=== PATIENT | female | born 1985 | race African-American/Black ===

== ENCOUNTER 2020-11-06 15:54 | Outpatient (CLI) | payer OTHER, SELFPAY ==
[2020-11-06 16:52] LABS: Beta HCG Quantitative < 2.39 mIU/ML
[2020-11-06 17:17] LABS: HIV 1/2 Ab P24 Ag Result Negative (Negative)
[2020-11-06 17:33] LABS: Hepatitis B Surface Antigen Negative (Negative)
[2020-11-06 17:39] LABS: HAV RESULT Negative (Negative); Hepatitis B Core IgM Result Negative (Negative)
[2020-11-06 17:51] LABS: Hepatitis C Virus Antibody Negative (Negative)
[2020-11-07 06:59] LABS: Rapid Plasma Reagin Non-Reactive (NonReactive)
== END 2020-11-06 15:55 | disposition home or self-care (01) ==
LOC: ANHLAB 15:58
PROVIDERS: PCP Registered Nurse; Visit Provider Obstetrics & Gynecology
DX: Z11.3 Encounter for screening for infections with a predominantly sexual mode of transmission (principal); N92.6 Irregular menstruation, unspecified
CPT/HCPCS: 36415; 80074; 84702; 86592; 86695; 86696; 86703; 87491; 87591; G0432

== ENCOUNTER → 2022-02-09 03:14 | Outpatient (CLI) | payer BC, SELFPAY ==
[2022-02-09 10:57] LABS: SARS-CoV-2 RNA PCR Negative
== END ==
PROVIDERS: PCP Registered Nurse; Visit Provider Registered Nurse
DX: Z71.84 Encounter for health counseling related to travel (principal); Z20.822 Contact with and (suspected) exposure to COVID-19
CPT/HCPCS: C9803; U0003; U0005

== ENCOUNTER 2024-07-18 10:44 | Outpatient (CLI) | payer BC, SELFPAY ==
--- NOTE | ~2024-07-18 | US_ITS ---
EXAMINATION: US thyroid DATE: 07/18/2024 11:01 INDICATION: Thyroid nodule. TECHNIQUE: Multiple ultrasound images of the thyroid were obtained. COMPARISON: Ultrasound 09/27/19 FINDINGS: The right thyroid lobe measures 4.5 x 1.0 x 1.1 cm. The left thyroid lobe measures 8.4 x 4.6 x 5.1 c m. In the right thyroid lobe, there is a 7 mm solid, hypoechoic, wider than tall nodule with smooth margin without echogenic foci (TI-RADS TR4). In the left thyroid lobe, there is an 8.4 cm predominant ly solid, hypoechoic, wider than tall nodule with smooth margin without echogenic foci (TR4), increas ed from 5.7 cm on 09/27/19. IMPRESSION: 1. Thyroid nodules. Ultrasound-guided fine-needle aspiration of the 8.4 cm left thyroid nodule is rec ommended. Reviewed, dictated and finalized at location A. IMPRESSION: 1. Thyroid nodules. Ultrasound-guided fine-needle aspiration of the 8.4 cm left thyroid nodule is recommended.
== END 2024-07-18 10:45 ==
LOC: MICIMG 10:45
PROVIDERS: PCP Registered Nurse; Visit Provider Registered Nurse
DX: E04.2 Nontoxic multinodular goiter (principal)
CPT/HCPCS: 76536

== ENCOUNTER 2025-06-16 11:54 | Emergency (ER) | payer OTHER, SELFPAY ==
--- NOTE | ~2025-06-16 | XR_ITS ---
HISTORY: flat foot. MTP 1st COMPARISON: None TECHNIQUE: 3 views of the right foot were performed FINDINGS: No acute fracture or dislocation is appreciated. No significant degenerative disease is noted. The base of the fifth metatarsal is intact. Moderate calcaneal spur is noted. Forefoot soft tissue swelling is present. IMPRESSION: Forefoot soft tissue swelling without acute fracture. Reviewed, dictated and finalized at location A.
--- NOTE | 2025-06-16 12:00 | ED.EXTPRO ---
HPI - Extremity Problem General Chief complaint: Extremity Problem,Nontraumatic Stated complaint: Legs/Feet Pain Time Seen by Provider: 06/16/25 12:01 Source: patient, RN notes reviewed and old records reviewed Mode of arrival: ambulatory Limitations: no limitations History of Present Illness HPI Narrative: 39-year-old female presents to the [facility] with complaints of at least 1 week history of bilateral lower leg pain, right foot pain mostly in the great toe joint. No redness, swelling noted. No injury. Patient reports pain is worse in morning, gets better throughout the day. 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 Onset (ago): week(s) (1) Related Data Home Medications ?Medication ?Instructions ?Recorded ?Confirmed ?Last Taken ?Type amitriptyline 25 mg tablet 25 mg PO QHS 02/17/22 06/06/25 Unknown History Allergies Allergy/AdvReac Type Severity Reaction Status Date / Time No Known Allergies Allergy Mild Verified 06/16/25 12:12 Review of Systems Review of Systems: All systems reviewed & are unremarkable except as noted in HPI and below Constitutional: Constitutional: Reports no additional constitutional complaints Musculoskeletal: Musculoskeletal: Reports as per HPI and Denies joint swelling Integumentary/Breasts: Skin/Breast: Reports system reviewed and no additional complaints, except as docu PMFSH Past Medical History Medical History Screening mammogram, encounter for Migraines Vaginal discharge Encounter for screening examination for sexually transmitted disease Abnormal Pap smear of cervix 06/2009 Anxiety Family History Family History Other Diabetes mellitus aunt Grandparent Diabetes mellitus grandmother Social History Social History Smoking status: Never smoker Second hand tobacco smoke exposure: No Alcohol intake: never Substance use: never Substance use type: does not use Do You Feel Safe in your Home?: Yes Lack of Transportation: No Lack of Food: Never True Current Housing: I Have Housing Concerned About Future Housing: No Difficulty Paying Gas/Electric Bills: No Difficulty Paying for Meds: No Currently Unemployed: No Education: Trade/Vocational Certificate Difficulty w/ Childcare or Family Care: No Living arrangements: other Additional living arrangements comments: fiance Occupation/Education: occupation 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 There is no relevant family history pertinent to the patient complaint. Exam Const: General: cooperative, healthy appearing, comfortable, no acute distress, well developed, alert and well nourished Nutritional Appearance: well nourished Orientation/consciousness: patient oriented x3 Limitations: no limitations HENMT: Head: normal to inspection Eyes: General: appearance normal, both eyes and all related structures Alignment and Position: alignment normal Neck: Neck: normal visual inspection, full ROM, no lymphadenopathy and no meningeal signs Chest: Chest palpation & inspection: normal inspection of the chest Resp: Effort & Inspection: normal respiratory effort and able to speak in complete sentences Cardio: Rate: regular rate Skin: General skin exam: normal color and no rashes or lesions noted Neuro: General: patient oriented x3, gait normal, moves all extremities and no meningeal signs Cognition (Neuro): normal cognition Speech: normal speech Gait exam (Neuro): Normal gait present Extrem: General: normal to inspection, full ROM, capillary refill normal and normal gait Right lower extremity: foot Details: tenderness Location: of the great toe Location: at the MTP joint, toes with normal ROM, no edema and vascular exam Details: dorsalis pedis pulse present and normal capillary refill; no abrasion and no ecchymosis Psych: Appearance: grossly normal and well kempt Mental Status: mental status grossly normal Speech and movement: Normal speech and movement present and Clear speech present Affect: normal affect Attitude: cooperative Course Course Level of Care: Express Care Visit Vital Signs Vital signs: Vital Signs Temperature 98.3 F 06/16/25 12:04 Pulse Rate 79 06/16/25 12:04 Respiratory Rate 06/16/25 12:04 Blood Pressure 120/72 06/16/25 12:04 Pulse Oximetry 100 06/16/25 12:04 Oxygen Delivery Room Air 06/16/25 12:04 Temperature 98.3 F 06/16/25 12:04 Pulse Rate 79 06/16/25 12:04 Respiratory Rate 20 06/16/25 12:04 Blood Pressure 120/72 06/16/25 12:04 Pulse Oximetry 100 06/16/25 12:04 Oxygen Delivery Room Air 06/16/25 12:04 Reviewed MDM - Extremity (Nontraumatic) MDM Narrative Medical decision making narrative: Patient sitting in exam room. Patient is nontoxic, vitals stable. Patient presents with 1 week history lower leg pain, right foot, great toe pain. No erythema, ecchymosis. No injury. Patient history of flat feet No edema. X-ray of a foot is negative for acute findings Patient appropriate for outpatient treatment with close follow-up Discharge instructions reviewed with patient, as well as provided in writing per nursing staff. The instructions also include specific and strict return/GO TO THE ER as well as f/u information. All questions have been answered, and the patient deny any further questions with discharge and discharge plan. Some parts of this dictation were generated by voice recognition software and may contain typographical and/or grammatical inaccuracies. Differential Diagnosis Differential diagnosis: Likely gout, cellulitis, superficial thrombophlebitis, lower extremity edema, deep vein thrombosis of lower extremity and other (Musculoskeletal pain, dehydration, electrolyte disturbance, heat issues) Imaging Data Radiologist's impression: HISTORY: flat foot. MTP 1st COMPARISON: None TECHNIQUE: 3 views of the right foot were performed FINDINGS: No acute fracture or dislocation is appreciated. No significant degenerative disease is noted. The base of the fifth metatarsal is intact. Moderate calcaneal spur is noted. Forefoot soft tissue swelling is present. IMPRESSION: Forefoot soft tissue swelling without acute fracture. Critical Care Time Critical Care Time Critical Care Time: No Discharge Plan Discharge Clinical Impression: Bilateral leg pain, Flat feet, bilateral, Acute pain of right foot Patient Disposition: Home Condition: Stable Instructions: Arthralgia (ED), Leg Pain (ED) Additional Instructions: Your Xray did not show a fracture. Wear good supportive shoes at all times. Ice should be applied to help reduce swelling. It can be used for 20 to 30 minutes, every 2-3 hours while awake. Do not apply ice directly to your skin. You can alternate ibuprofen 600mg and Tylenol 650mg every 4 hours as needed for pain Muscle cramping can occur during hot weather. Is important not to just drink water but also items with electrolytes such as Pedialyte or Gatorade. You should be drinking a minimum of 80oz per day. Please schedule a follow-up visit with your personal physician for further evaluation and treatment within 2 weeks especially if symptoms persist. For new or worsening symptoms go directly to the emergency room Patient Language: French Prescriptions: No Action amitriptyline 25 mg tablet 25 mg PO QHS drospirenone-ethinyl estradiol [DEMETRI (28)] 3-0.02 mg tablet 1 tablet PO DAILY Qty: 84 3RF Follow-up/Referrals: Eugene Dolan Jr., DPM [Physician] - 1 Week (right foot pain. FLat foot) Lesly,SYEDA Anderson [Primary Care Provider] - 1 Week (express care follow up ) Time of Disposition: 12:44
[2025-06-16 12:04] VITALS: BP 120/72; PULSE 79; RESP 20; TEMP 36.8; O2SAT 100
== END 2025-06-16 12:50 | disposition home or self-care (01) ==
PROVIDERS: Emergency Provider Nurse Practitioner; PCP Registered Nurse
DX: M79.661 Pain in right lower leg (principal); M79.662 Pain in left lower leg; M21.42 Flat foot [pes planus] (acquired), left foot; M21.41 Flat foot [pes planus] (acquired), right foot; M79.671 Pain in right foot
CPT/HCPCS: 73630; 99213; G0463

== ENCOUNTER 2025-06-21 14:35 | Observation (INO) | payer OTHER, SELFPAY ==
[2025-06-21] VITALS (23 sets, daily range): BP systolic 121–145; BP diastolic 57–86; PULSE 72–112; RESP 14–31; TEMP 36.7–37.2; O2SAT 97–100; BMI 32.1
--- NOTE | ~2025-06-21 | US_ITS ---
EXAMINATION: US venous doppler [facility] DATE: 06/21/2025 16:54 INDICATION: Pulmonary embolism. Assess for deep venous thrombosis. TECHNIQUE: Grayscale ultrasound images without and with compression and Doppler ultrasound images of the bilateral lower extremity veins were obtained. COMPARISON: None. FINDINGS: The visualized portions of right common femoral vein, profunda (deep) femoral vein, femoral vein, pop liteal vein, posterior tibial veins, peroneal veins, gastrocnemius vein and greater saphenous vein ou tflow are patent. Noncompressible deep venous thrombosis at the left popliteal vein, gastrocnemius vein, peroneal veins and posterior tibial veins. The visualized portions of left common femoral vein, profunda femoral ve in, femoral vein, gastrocnemius vein and greater saphenous vein outflow are patent. IMPRESSION: 1. [id number] deep venous thrombosis at the left popliteal, gastrocnemius, peroneal vein and pos terior tibial veins. 2. No deep venous thrombosis in the right lower limb. Reviewed, dictated and finalized at location A. IMPRESSION: 1. [id number]-[id number] deep venous thrombosis at the left popliteal, gastrocnemius, peroneal vein and posterior tibial veins. 2. No deep venous thrombosis in the right lower limb.
--- NOTE | ~2025-06-21 | CT_ITS ---
EXAMINATION: CTA chest PE protocol DATE: 06/21/2025 16:27 INDICATION: Shortness of breath TECHNIQUE: Computed tomography (CT) pulmonary angiogram of the chest was performed with 100 mL Omnipa que-350 intravenous contrast. Additional 3D reconstructions utilizing coronal maximum intensity proje ction (MIP) were performed. Automated exposure control and iterative reconstruction technique were em ployed. The dose-length product was 266.22 mGy-cm. COMPARISON: None FINDINGS: There are multiple pulmonary arterial filling defects consistent with pulmonary emboli. On the right includes in the right upper lobar and each of the segmental pulmonary arteries, extending between the right middle and lower lobar bronchi extending into posterior medial lateral segmental pulmonary art eries in the right middle lobe and the anterior and lateral basilar segmental pulmonary arteries of t he right lower lobe. On the left or pulmonary emboli in the posterior, lateral and anteromedial segme ntal pulmonary arteries of the left lower lobe as well as the superior and inferior lingular pulmonar y arteries. Wedge-shaped region of groundglass opacity with peripheral consolidation at the anterior basilar segm ent of the right lower lobe consistent with pulmonary infarct. Minimal dependent atelectasis in bilat eral lower lobes. No pneumonia, pulmonary edema or pleural effusion. Heart size is normal. No evident leftward bowing of the ventricular septum to suggest right heart strain. No pericardial effusion. Th oracic aorta is normal in caliber with no dissection. No pathologically enlarged thoracic lymphadenop athy. Multiple low-attenuation hepatic cysts the largest the right hepatic lobe measuring 1.9 cm. Vis ualized upper abdomen is otherwise unremarkable. Mild thoracic dextrocurvature with mild spondylosis. IMPRESSION: 1. Extensive pulmonary emboli which are findings lobe of both lungs including in the majority of the segmental pulmonary arteries. No evident associated right heart strain. 2. Which is a region of groundglass opacity with peripheral consolidation at the anterobasilar segmen t of the right lower lobe most consistent with pulmonary infarct. Dr. Spivey discussed this and pre sence of pulmonary emboli with Dr. West at 4:52 PM. Reviewed, dictated and finalized at location A. IMPRESSION: 1. Extensive pulmonary emboli which are findings lobe of both lungs including i n the majority of the segmental pulmonary arteries. No evident associated right heart strain. 2. Which is a region of groundglass opacity with peripheral consolidation at th e anterobasilar segment of the right lower lobe most consistent with pulmonary infarct. Dr. Spivey discussed this and presence of pulmonary emboli with Dr. West at 4:52 PM.
--- OUTSIDE RECORDS SUMMARY | 2025-06-21 14:38 | XMS_ITS | Encounter Summary ---
Author Organization [facility] Address [facility] [place] [address] Care Team Providers Care Senior Etl Developer Name Role Phone Monica Grace Primary Care Provider Encounter Details Date Type Department Care Team (Late st Contact Info) Description 10/29/2022 [place] Message Enc [facility] Family & Internal Medicine [facility] [address] [place] [address] Monica Grace APNP [address], [place] [phone] Bad cough Social History Tobacco Use Types Packs/Day Years Used Date Smoking Tobacco: Never Smokeless Tobacco: Never Alcohol Use Standard Drinks/Week Comments Yes 0 (1 standard drink = 0.6 oz pur e alcohol) Occ PHQ-2 Answer Date Recorded PHQ-2 Score - If the patient scores above 3, please move on to questions 3-9 1 12/19/2021 Comments No Sex and Gender Information Value Date Recorded Sex Assigned at Female 02/05/2021 4:18 PM CDT Legal Sex Female 9:39 PM CDT Gender Identity Female 02/05/2021 4:18 PM CDT Sexual Orientation Straight 02/05/2021 4: 18 PM CDT documented as of this encounter Plan of Treatment Not on file documented as of this encounter Visit Diagnoses Not on filedocumented in this encounter Additional Health Concerns Assessment Noted Time PHQ-9 Depression Total Score: 6 12/19/19 22 9:29 AM AIR SAW OPERATOR documented as of this encounter Care Teams Senior Etl Developer Relationship Specialty Start Date End Date Monica Grace APNP [address] [place] [id number] PCP - General NURSE PRACTITIONER 12/28/18 documented as of this encounter
--- OUTSIDE RECORDS SUMMARY | 2025-06-21 14:38 | XMS_ITS | Encounter Summary ---
Author Organization [facility] Address [facility] [place] [address] Care Team Providers Care Spray Dyer Name Role Phone Monica Grace Primary Care Provider [phone] Encounter Details Date Type Department Care Team (Late st Contact Info) Description 03/05/2022 MyChart Message Enc [facility] Medical Group Family & Internal Medicine 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
--- OUTSIDE RECORDS SUMMARY | 2025-06-21 14:38 | XMS_ITS | Encounter Summary ---
Author Organization [facility] Address [address] [place] [address] Care Team Providers Care Technical Developer Name Role Phone Monica Grace Primary Care Provider [phone] Encounter Details Date Type Department Care Team (Latest Contact Info) Description 06/21/2025 Travel Social History Tobacco Use Types Packs/Day Years Used Date Smoking Tobacco: Never Smokeless Tobacco: Never Alcohol Use Standard Drinks/Week Comments Not Currently 0 (1 standard drink = 0.6 oz pur e alcohol) Occ PHQ-2 Answer Date Recorded Patient Health Questionnaire-2 Score 0 12/14/2024 Comments No Sex and Gender Information Value [...] Assessment Noted Time PHQ-9 Depression Total Score: 14 023 9:03 AM MANAGER WIND documented as of this encounter Care Teams Technical Developer Relationship Specialty Start Date End Date Monica Grace APNP [address] [place] [id number] PCP - General NURSE PRACTITIONER 12/28/18 documented as of this encounter
--- OUTSIDE RECORDS SUMMARY | 2025-06-21 14:38 | XMS_ITS | Referral Summary ---
Author Organization [facility] Address [address] [place] [address] Care Team Providers Care Soft Top Installer Name Role Phone Monica Grace Primary Care Provider + Allergies No known active allergies Medications amitriptyline (ELAVIL) 25 mg tablet Take 1 tablet (25 mg total) by mouth nightly as needed for sleep 4 Active betamethasone dipropionate (DEL-BETA) 0.05 % cream 4 Active SUMAtriptan (IMITREX) 100 mg tablet Take 1 tablet at onset of symptoms, may take 1 tablet 2 hours later. Max of 2 tablets in 24-hour period. 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 Amenorrhea 02/01/2023 Intractable migraine without aura and without status migrainosus 12/29/2022 Thyroid nodule 09/08/2018 Atypical chest pain 09/07/2018 Breast pain in female 09/07/2018 Fatigue 04/02/2016 Paronychia of great toe, left 04/02/2016 Bilateral wrist pain 07/19/2015 Paresthesia of arm 07/19/2015 Ankle pain, left 09/27/2014 Hand pain, left 09/27/2014 Headache 03/30/2014 Peripheral edema 03/30/2014 Social History Tobacco Use Types Packs/Day Years Used Date Smoking Tobacco: Never Smokeless Tobacco: Never Tobacco Cessation:Counseling Given: Not Answered AUDIT-C Answer Date Recorded Q1: How often do you have a drink containing alcohol? Never 11/17/2024 Q2: How many drinks containi ng alcohol do you have on a typical day when you are drinking? Patient does not drink Frequency of Binge Drinking Not on file 10/23 Personal Safety Answer Date Recorded Have you ever been in or are you currently in a harmful physical or emotional relationship or is someone making you feel afraid or unsafe? Denies 11/28/2024 Comments No Sex and Gender Information Value Date Recorded Sex Assigned at Not on file Legal Sex Female 8:15 PM INSTRUCTIONAL SPECIALIST Gender Identity Not on file Sexual Orientation Not on file Last Filed Vital Signs Vital Sign Reading Time Taken Comments Blood Pressure 126/56 11/29/2024 8:30 AM INSTRUCTIONAL SPECIALIST Pulse 79 11/29/2024 8:30 AM INSTRUCTIONAL SPECIALIST Temperature 37.2 C (99 F) 11/29/2024 8:30 AM INSTRUCTIONAL SPECIALIST Respiratory Rate 16 11/29/2024 8:30 AM INSTRUCTIONAL SPECIALIST Oxygen Saturation 100% 11/29/2024 8:30 AM INSTRUCTIONAL SPECIALIST Inhaled Oxygen Concentration - - Weight 93.4 kg (205 lb 14.6 oz) 025 11:00 AM INSTRUCTIONAL SPECIALIST Height 165.1 cm (5' 5) 12/06/2024 11:0 0 AM INSTRUCTIONAL SPECIALIST Body Mass Index 34.27 12/06/2024 11:00 AM INSTRUCTIONAL SPECIALIST Plan of Treatment Not on file Insurance [employer] [facility] [employer]IL [employer] Advance Directives For more information, please contact: [phone] * Full Code (Latest Code Status on File) Date Activated Date Inactivated Comments 11/28/2024 3:12 PM 11/29/2024 3:21 PM Care Teams Soft Top Installer Relationship Specialty Start Date End Date Monica Grace PA [address] [place] [id number] PCP - General Nurse Practitioner 10/10/24
--- OUTSIDE RECORDS SUMMARY | 2025-06-21 14:38 | XMS_ITS | Clinical Summary ---
Author Organization [facility] Address [address] [place] [address] Care Team Providers Care Glue Mounter Operator Name Role Phone Unavailable Primary Care Provider Unavailabl e Source Comments [facility],non-owned Affiliates and Associated Physician Practices is amultiple site organization consisting of ambulatory clinics and hospital sitesin [place], [place], [place] and [place]. This disclosure is being madepursuant to the Care Everywhere program and may not contain all information available regarding this patient. Last updated 18.[facility] Allergies No known active allergies Medications * Be aware that medications may not be up to date on this document. Alwaysverify current medications with the patient. No known medications Social History Tobacco Use Types Packs/Day Years Used Date Smoking Tobacco: Never Smokeless Tobacco: Never Alcohol Use Standard Drinks/Week Comments Yes 0 (1 standard drink = 0.6 oz pur e alcohol) Comments No Sex and Gender Information Value Date Recorded Sex Assigned at Not on file Legal Sex Female 9:39 AM UX MANAGER Gender Identity Not on file Sexual Orientation Not on file Last Filed Vital Signs Vital Sign Reading Time Taken Comments Blood Pressure 118/74 12/04/2019 10:59 AM UX MANAGER Pulse 93 12/04/2019 10:59 AM UX MANAGER Temperature 36.9 C (98.5 F) 12/04/2019 10:59 AM UX MANAGER Respiratory Rate 16 12/04/2019 10:59 AM UX MANAGER Oxygen Saturation 98% 12/04/2019 10:59 AM UX MANAGER Inhaled Oxygen Concentration - - Weight 80.3 kg (177 lb) 12/04/2019 10:59 AM UX MANAGER Height 165.1 cm (5' 5) 12/04/2019 10:59 AM UX MANAGER Body Mass Index 29.45 12/04/2019 10:59 AM UX MANAGER Plan of Treatment Health Maintenance Due Date Last Done Comments MAMMOGRAM 1983 HIV SCREENING 1998 HEPATITIS C SCREENING 10/16/2001 DTAP/TDAP/TD VACCINES (1 - Tdap) 2002 HEPATITIS B VACCINE (1 of 3 - 19+ 3-dose series) 2002 HPV VACCINE (1 - 3-dose SCDM series) 2010 COVID-19 VACCINE (2 - 2023-2 5 season) 2024 02/24/2021 LIPID TESTING 09/27/2024 09/27/2019 DEPRESSION SCREENING 11/22/2024 INFLUENZA VACCINE (#1) 2025 12/19/2021 ZOSTER VACCINE (1 of 2) 2033 HIB VACCINE Aged Out No longer eligi ble based on patient's age to complete this topic MENINGOCOCCAL (Group B) VACC INE SHARED DECISION-MAKING Aged Out No longer eligibl e based on patient's age to complete this topic MENINGOCOCCAL GROUPS A/C/Y/W VACCINE Aged Out No longer eligible b ased on patient's age to complete this topic PNEUMOCOCCAL VACCINE Aged Out No long er eligible based on patient's age to complete this topic Insurance [employer]
--- OUTSIDE RECORDS SUMMARY | 2025-06-21 14:38 | XMS_ITS | Clinical Summary ---
Author Organization [facility] Address [address] [place] [address] Care Team Providers Care Packing Line Worker Name Role Phone Easton Grace Primary Care Provider Medications ibuprofen (MOTRIN) 200 MG tablet Take 1 tablet (200 mg total) by mouth every 6 (six) hours as needed for Pain. Active rimegepant (NURTEC) 75 MG disintegrating tabletIndications: Intractable migraine without aura and without status migrainosus Take 1 tablet (75 mg total) by mouth daily as needed for Migraine. Max of 1 tablet (75 mg) in 24 hours. 15 tablet 1 12/14/19 25 Active drospirenone-ethin yl estradiol 3-0.02 MG tablet Take 1 tablet by mouth daily. 02/07/20 25 Active ondansetron (ZOFRAN) 4 MG tabletIndications: Nausea Take 1 tablet (4 mg total) by mouth every 8 (eight) hours as needed for Nausea. 30 tablet 02/21/20 25 Active levoFLOXacin (LEVAQUIN) 750 MG tablet Take 1 tablet (750 mg total) by mouth daily. 06/18/20 25 Active predniSONE (DELTASONE) 20 MG tablet Take 2 tablets (40 mg total) by mouth daily. 06/18/20 25 Active amitriptyline (ELAVIL) 25 MG tabletIndications: Migraine without status migrainosus, not intractable, unspecified migraine type Take 1 tablet (25 mg total) by mouth nightly at bedtime. 90 tablet 1 01/05/20 24 025 Discontinued Active Problems Problem Noted Date Diagnosed Date Amenorrhea 02/01/2023 Intractable migraine without aura and without status migrainosus 12/29/2022 Thyroid nodule 09/08/2018 Atypical chest pain 09/07/2018 Breast pain in female 09/07/2018 Fatigue 04/02/2016 Paronychia of great toe, left 04/02/2016 Bilateral wrist pain 07/19/2015 Paresthesia of arm 07/19/2015 Ankle pain, left 09/27/2014 Hand pain, left 09/27/2014 Headache 03/30/2014 Peripheral edema 03/30/2014 Resolved Problems Problem Noted Date Diagnosed Date Resolved Date Screening for blood disease 09/07/2018 08/02/2020 Screening for heart disease 09/07/2018 08/02/2020 Screening for malnutrition 09/07/2018 0 08/02/2020 Screening for diabetes mellitus 09/07/2018 08/02/2020 Screening for cholesterol level 09/07/2018 08/02/2020 URI, acute 11/24/2016 12/19/2021 Encounters Date Type Department Care Team Description 06/21/2025 1:40 PM CDT Office Visit [facility] Medical [facility] Family & Internal Medicine [address] [phone] Eugenia Ferrer, DO Cough (Dry cough, pain under right breast 06/18 went to [facility] and was diagnosed with pnuemonia. Was given prednisone and levoflaxin. Sx started on Wednesday06/16/25 with leg pains, went to [place] ED and a xray of her ankles was done and told to see podiatry. ) 06/21/2025 Travel 06/20/2025 MyChart Message Enc [facility] Family & Internal Medicine [address] [phone] Easton Grace, KENDY Pneumonia from Last 3 Months Immunizations Immunization Administration Dates Next Due Fluzone 6 Months+ Quad (0.5 mL Prefilled Syringe ) 12/19/2021 BALDOMERO (ROMA & ROMA) COVID-19 AD26 VACCINE 0.5 ML IM SUSP 02/24/2021,02/24/2021 Tdap (Adacel) 12/19/2021 Family History Medical History Relation Comments Hypertension Father Hypertension Mother Alzheimers Other Family member no t specified Diabetes Paternal Aunt Relation Status Comments Brother Alive Father Alive Mother Alive Other Paternal Aunt Sister Alive Social History Tobacco Use Types Packs/Day Years Used Date Smoking Tobacco: Never Smokeless Tobacco: Never Tobacco Cessation:Counseling Given: No Alcohol Use Standard Drinks/Week Comments Not Currently [...] Orientation Straight 02/05/2021 4: 18 PM CDT Last Filed Vital Signs Vital Sign Reading Time Taken Comments Blood Pressure 112/64 06/21/2025 1:47 PM CDT Pulse 104 06/21/2025 1:47 PM CDT Temperature 36.1 C (97 F) 06/21/2025 1:47 PM CDT Respiratory Rate 18 06/21/2025 1:47 PM CDT Oxygen Saturation 98% 06/21/2025 1:47 PM CDT Inhaled Oxygen Concentration - - Weight 84.4 kg (186 lb) 06/21/2025 1:47 PM CDT Height 165.1 cm (5' 5) 06/21/2025 1:47 PM CDT Body Mass Index 30.95 06/21/2025 1:47 PM CDT Plan of Treatment Health Maintenance Due Date Last Done Comments Cervical Cancer Screening Pa p Smear (Age 30 to 64) Every 3 Years 1983 Hepatitis B Vaccines (1 of 3 - 19+ 3-dose series) 2002 HPV Vaccines (1 - 3-dose SCD M series) 2010 Cervical Cancer Screening Pa p with HPV Testing (Age 30 to 64) Every 5 Years 2013 COVID-19 Vaccine (2023-2 5 season) 2024 02/24/2021, 02/24/2021 Annual Physical 01/05/2025 01/05/2024, 09/26/2019 Cervical Cancer Screening with HPV 07/13/2025 Postponed from 10/21 (Going to Outside Clinic) Mammogram Screening 02/21/2027 02/21/2025 DTaP, Tdap and Td Vaccines ( 2 - Td or Tdap) 12/19/2031 12/19/2021 Hepatitis C Completed 01/07/2024 PHQ-2 (Physician [place]) Completed 12/14/2024 Meningococcal B Vaccine Aged Out No l onger eligible based on patient's age to complete this topic Meningococcal Vaccine Aged Out No katerine fatoumata eligible based on patient's age to complete this topic Pneumococcal Vaccine: Pediatrics (0 to 5 Years) and At-Risk Patients (6 to 49 Years) Aged Out No longer eligible b ased on patient's age to complete this topic RSV Immunizations Under 20 Months Aged Out No longer eligible b ased on patient's age to complete this topic Procedures Procedure Name Priority Date/Time Associated Diagnosis Comments MG SCREENING W WILMER CHIRAG DIGI Routine 02/21/2025 10:34 AM CDT Encounter for screening mammogram for malignant neoplasm of breast HEPATITIS C ANTIBODY W/RFX TO HCV RNA Routine 01/07/2024 10:33 AM PLATE MILL MILL HAND Need for hepatitis C screening test from Last 3 Months or Most Recently Relevant to Health Maintenance Results * MG SCREENING W WILMER CHIRAG DIGI (02/21/2025 10:34 AM CDT) Anatomical Region Laterality Modality Breast Bilateral Mammography 02/21/2025 2:29 PM CDT Impressions 02/21/2025 2:30 PM CDT IMPRESSION: No suspicious mammographic findings. Recommendation: 1. Routine Screening, Bilateral Assessment: ACR BI-RADS 2 - BENIGN FINDING(S) Ordered By: EASTON GRACE Interpreted By: Jam Delong, 02/21/2025 2:29 PM Narrative 02/21/2025 2:30 PM CDT [address] [address] Examination: Screening bilateral mammogram Exam Date/Time: 02/21/2025 10:18 AM Clinical history: No current complaints. Comparison: None. Baseline exam. Technique: Digital screening mammography of both breasts was performed. Breast tomosynthesis acquisitions were obtained and reviewed. This study was read with the assistance of a computer-aided detection system. Tissue density: There are scattered areas of fibroglandular density. Findings: No suspicious masses, malignant appearing calcifications, skin thickening or other abnormalities are present. [facility] Final Resul t * HEPATITIS C ANTIBODY W/RFX TO HCV RNA ([facility] ONLY) (01/07/2024 10:33 AM PLATE MILL MILL HAND) HEPATITIS C AB Non Reactive Non Reacti [facility] 1 INTERPRETATION Comment [facility] 1 Comment: Not infected with HCV unless early or acute infection is suspected (which may be delayed in an immunocompromised individual), or other evidence exists to indicate HCV infection. 01/07/2024 10:3 3 AM PLATE MILL MILL HAND 01/07/2024 Narrative [facility] - 01/08/2024 12:09 PM PLATE MILL MILL HAND Performed at: 01 - [facility] [place] [address] Animal Groomer: Shashank Moreno PhD, Phone: [phone] [facility] Final Resul t [facility] [address] [id number] [facility] 1 from Last 3 Months or Most Recently Relevant to Health Maintenance Insurance [employer] [facility] Care Teams Packing Line Worker Relationship Specialty Start Date End Date Easton Grace APNP [address] [place] [address] PCP - General NURSE PRACTITIONER 12/28/18
--- OUTSIDE RECORDS SUMMARY | 2025-06-21 14:38 | XMS_ITS | Encounter Summary ---
Author Organization [facility] Address [address] [place] [address] Care Team Providers Care Special Events Director Name Role Phone Monica Grace Primary Care Provider [phone] Reason for Visit * Reason Onset Date Comments Appointment Request 06/20/2025 Encounter Details Date Type Department Care Team (Late st Contact Info) Description 06/20/2025 Academicat Message Enc [facility] Medical Group Family & Internal Medicine [facility] [address] [place] [address] Monica Grace APNP [address], [place] [phone] Pneumonia Social History Tobacco Use Types Packs/Day Years [...] PM CDT documented as of this encounter Progress Notes * Keturah Juarez MA - 06/20/2025 3:01 PM CDT Patient scheduled with Dr. Ferrer at 1:40 pm 06/20/2025 3:01 PM * Winter Miranda MA - 06/20/2025 2:54 PM CDT LMOM that she can be seen by Dr. Ferrer tomorrow () if she wants. Asked her to call first thing in morning to schedule. documented in this encounter Plan of Treatment Not on file documented as of this encounter Visit Diagnoses Not on filedocumented in this encounter Additional Health Concerns Assessment Noted Time PHQ-9 Depression Total Score: 14 023 9:03 AM INFECTIOUS DISEASES PHYSICIAN documented as of this encounter Care Teams Special Events Director Relationship Specialty Start Date End Date Monica Grace APNP [address] [place] [address] PCP - General NURSE PRACTITIONER 12/28/18 documented as of this encounter
--- OUTSIDE RECORDS SUMMARY | 2025-06-21 14:38 | XMS_ITS | Encounter Summary ---
Author Organization [facility] Address [facility] [place] [address] Care Team Providers Care Straight Cutter Name Role Phone Monica Grace Primary Care Provider Encounter Details Date Type Department Care Team (Late st Contact Info) Description 04/06/2022 MyChart Message Enc [facility] Medical Group Family & Internal Medicine [facility] [address] [place] [address] Monica Grace APNP [address], [place] [phone] FMLA Social History Tobacco Use Types Packs/Day [...] Orientation Straight 02/05/2021 4: 18 PM CDT COVID-19 Exposure Response Date Recorded In the last 10 days, have yo u been in contact with someone who was confirmed or suspected to have Coronavirus/COVID-19? No / Unsure 03/12/2022 10:35 AM CDT documented as of this encounter Plan of Treatment Not on file documented as of this encounter Visit Diagnoses Not on filedocumented in this encounter Additional Health Concerns Assessment Noted Time PHQ-9 Depression Total Score: 6 12/19/19 22 9:29 AM REPAIR SPECIALIST documented as of this encounter Care Teams Straight Cutter Relationship Specialty Start Date End Date Monica Grace APNP [address] [place] [phone] PCP - General NURSE PRACTITIONER 12/28/18 documented as of this encounter
--- OUTSIDE RECORDS SUMMARY | 2025-06-21 14:38 | XMS_ITS | Encounter Summary ---
Author Organization [facility] Address [facility] [place] [address] Care Team Providers Care Accounting Lecturer Name Role Phone Monica Grace Primary Care Provider Encounter Details Date Type Department Care Team (Late st Contact Info) Description 03/19/2022 MyChart Message Enc [facility] Medical Group Family & Internal Medicine [facility] [address] [place] [address] Monica Grace APNP [address] [place], [place] [phone] Fax Number Social History Tobacco Use Types Packs/Day Years [...] Total Score: 6 12/19/19 22 9:29 AM ACID CORRECTION HAND documented as of this encounter Care Teams Accounting Lecturer Relationship Specialty Start Date End Date Monica Grace APNP [address] [place] [address] PCP - General NURSE PRACTITIONER 12/28/18 documented as of this encounter
--- OUTSIDE RECORDS SUMMARY | 2025-06-21 14:38 | XMS_ITS | Clinical Summary ---
Author Organization [facility] Address [address] [place] [address] Care Team Providers Care Steward/Stewardess Club Car Name Role Phone Monica Grace Primary Care [...] left 09/27/2014 Headache 03/30/2014 Peripheral edema 03/30/2014 Medical History Medical History Date Comments Substernal thyroid goiter Thyroid nodule Amenorrhea Ankle pain Intractable migraine without aura and without st atus migrainosus Family History Medical History Relation Name Comments Diabetes Other Heart disease Other Relation Name Status Comments Other Social History Tobacco Use Types Packs/Day Years [...] on file Legal Sex Female 8:15 PM CHIEF MERCHANDISING OFFICER Gender Identity Not on file Sexual Orientation Not on file Obstetrics History Last Filed Vital Signs Vital Sign Reading Time Taken Comments Blood Pressure 126/56 11/29/2024 8:30 AM CHIEF MERCHANDISING OFFICER Pulse 79 11/29/2024 8:30 AM CHIEF MERCHANDISING OFFICER Temperature 37.2 C (99 F) 11/29/2024 8:30 AM CHIEF MERCHANDISING OFFICER Respiratory Rate 16 11/29/2024 8:30 AM CHIEF MERCHANDISING OFFICER Oxygen Saturation 100% 11/29/2024 8:30 AM CHIEF MERCHANDISING OFFICER Inhaled Oxygen Concentration - - Weight 93.4 kg (205 lb 14.6 oz) 025 11:00 AM CHIEF MERCHANDISING OFFICER Height 165.1 cm (5' 5) 12/06/2024 11:0 0 AM CHIEF MERCHANDISING OFFICER Body Mass Index 34.27 12/06/2024 11:00 AM CHIEF MERCHANDISING OFFICER Plan of Treatment Health Maintenance Due Date Last Done Comments Breast Cancer Screening-Mammogram 1983 Cervical Cancer Screening 1983 Depression Screening 1983 Hepatitis C Screening 1983 Varicella Vaccines (1 of 2 - 13+ 2-dose series) 1996 Hepatitis B Screening 2001 Regular Well Visit/Exam 18-64 2001 HPV Vaccines (1 - 3-dose SCD M series) 2010 Covid-19 Vaccine (2 - 2023-2 5 season) 2024 02/24/2021 Influenza Vaccine (#1) 2025 12/19/2021 DTaP/Tdap/Td Vaccine (2 - Td or Tdap) 12/19/2031 12/19/2021 Pneumococcal vaccine <65 Aged Out No longer eligible based on patient's age to complete this topic Insurance [facility] [employer] Advance Directives For more information, please contact: [phone] * Full Code (Latest Code Status on File) Date Activated Date Inactivated Comments 11/28/2024 3:12 PM 11/29/2024 3:21 PM Care Teams Steward/Stewardess Club Car Relationship Specialty Start Date End Date Monica Grace PA [address] [place] [id number] PCP - General Nurse Practitioner 10/10/24
--- OUTSIDE RECORDS SUMMARY | 2025-06-21 14:38 | XMS_ITS | Encounter Summary ---
Author Organization [facility] Address [facility] [place] [address] Care Team Providers Care Department Supervisor Name Role Phone Monica Grace Primary Care Provider [phone]- [phone] Reason for Visit * Reason Comments Cough Dry cough, pain unde r right breast 06/18 went to [facility] and was diagnosed with pnuemonia. Was given prednisone and levoflaxin. Sx started on Wednesday06/16/25 with leg pains, went to [place] ED and a xray of her ankles was done and told to see podiatry. Encounter Details Date Type Department Care Team (Late st Contact Info) Description 06/21/2025 1:40 PM CDT Office Visit [facility] Medical Group Family & Internal Medicine [address] [phone] Eugenia Ferrer, DO [address] [address] Cough (Dry cough, pain under right breast 06/18 went to [facility] and was diagnosed with pnuemonia. Was given prednisone and levoflaxin. Sx started on Wednesday06/16/25 with leg pains, went to [place] ED and a xray of her ankles was done and told to see podiatry. ) Social History Tobacco Use Types Packs/Day Years [...] PM CDT documented as of this encounter Last Filed Vital Signs Vital Sign Reading [...] Mass Index 30.95 06/21/2025 1:47 PM CDT documented in this encounter Progress Notes * Eugenia Ferrer, DO - 06/21/2025 1:40 PM CDT Images from the original note were not included. Encounter Date: 06/21/2025 Reason for Visit: Cough (Dry cough, pain under right breast 06/18 went to [facility] and was diagnosed with pnuemonia. Was given prednisone and levoflaxin. Sx started on Wednesday06/16/25 with leg pains, went to [place] ED and a xray of her ankles was done and told to see podiatry. ) History of Present Illness: Radha Naidu is a 39-year-old female here for chest pain. Patient has states that she has had a dry cough since mid May. But then on the she woke up with right-sided chest pain triggered by taking a deep breath. She was also very short of breath. Patient states she went to urgent care and was diagnosed with pneumonia and started on antibiotics and steroids but her symptoms have not improved. Cough is not productive. No fever, chills, or bodyaches. No palpitations. Patient denies runny nose or ear pain. No tobacco use. No sick contacts. No recent prolonged immobility. Patient does takeestrogen containing control pills. ROS: See HPI. Medications: Medications Taking[1] Allergies: Not on File Medical History: Past Medical History[2] Surgical History: Past Surgical History[3] Social History: Social History[4] Family History: Family History[5] PE: Vitals: 06/21/25 1347 Patient Position: Sitting BP Location: Right arm Cuff size: Adult Large BP: 112/64 Pulse: (!) 104 Body mass index is 30.95 kg/m??. PHQ-9: 07/13/2024 11:01 AM 12/14/2024 10:33 AM PHQ2/PHQ 9 DEPRESSION SCREEN QUESTIONAIRE Little interest or pleasure in doing things Not at all Not at all Feeling down, depressed, or hopeless Not at all Not at all Patient Health Questionnaire-2 Score 0 0 Physical Exam Constitutional: General: She is in acute distress. Appearance: She is not toxic-appearing or diaphoretic. HENT: Head: Normocephalic and atraumatic. Right Ear: Tympanic membrane, ear canal and external ear normal. Left Ear: Tympanic membrane, ear canal and external ear normal. Nose: Nose normal. No congestion or rhinorrhea. Mouth/Throat: Mouth: Mucous membranes are moist. Pharynx: No oropharyngeal exudate or posterior oropharyngeal erythema. Eyes: General: Right eye: No discharge. Left eye: No discharge. Extraocular Movements: Extraocular movements intact. Cardiovascular: Rate and Rhythm: Regular rhythm. Tachycardia present. Heart sounds: No murmur heard. No friction rub. No gallop. Pulmonary: Breath sounds: No stridor. No wheezing, rhonchi or rales. Comments: Short of breath. Chest: Chest wall: No tenderness. Musculoskeletal: General: No swelling or tenderness. Right lower leg: No edema. Left lower leg: No edema. Skin: General: Skin is warm and dry. Neurological: Mental Status: She is alert. Diagnoses/Impression: 1. Pleuritic chest pain Recommendations and Plan: 1. Pleuritic chest pain (Primary) Although patient was diagnosed with pneumonia 3 days ago I am concerned that this could be a pulmonary embolism given her pleuritic chest pain, lack of fever, lack of productive cough, tachycardia, and risk factors of being female, age over 35, obesity, and OCP use. I recommended patient go to the ER and she voiced understanding and declined EMS transport. I called and provided signout to ER attending at [facility]. Eugenia Ferrer DO 06/21/2025 [1] Outpatient Medications Marked as Taking for the 06/21/25 encounter (Office Visit) with Eugenia Ferrer DO Medication Sig Dispense Refill drospirenone-ethinyl estradiol 3-0.02 MG tablet Take 1 tablet by mouth daily. ibuprofen (MOTRIN) 200 MG tablet Take 1 tablet (200 mg total) by mouth every 6 (six) hours as needed for Pain. levoFLOXacin (LEVAQUIN) 750 MG tablet Take 1 tablet (750 mg total) by mouth daily. ondansetron (ZOFRAN) 4 MG tablet Take 1 tablet (4 mg total) by mouth every 8 (eight) hours as needed for Nausea. 30 tablet 0 predniSONE (DELTASONE) 20 MG tablet Take 2 tablets (40 mg total) by mouth daily. rimegepant (NURTEC) 75 MG disintegrating tablet Take 1 tablet (75 mg total) by mouth daily as needed for Migraine. Max of 1 tablet (75 mg) in 24 hours. 15 tablet 1 [2] Past Medical History: Diagnosis Date Anxiety Depression Thyroid nodule 09/08/2018 [3] History reviewed. No pertinent surgical history. [4] Social History Tobacco Use Smoking status: Never Smokeless tobacco: Never Vaping Use Vaping status: Never Used Substance Use Topics Alcohol use: Not Currently Comment: Occ Drug use: Never [5] Family History Problem Relation Name Age of Onset Hypertension Mother Mckenna Brice Hypertension Father Adal Naidu Alzheimers Other Family member not specified Diabetes Paternal Aunt Indu Naidu documented in this encounter Plan of Treatment Not on file documented as of this encounter Visit Diagnoses Diagnosis Pleuritic chest pain- Primary Painful respiration documented in this encounter Additional Health Concerns Assessment Noted Time PHQ-9 Depression Total Score: 14 023 9:03 AM BUSINESS CONTINUITY STRATEGY DIRECTOR documented as of this encounter Care Teams Department Supervisor Relationship Specialty Start Date End Date Monica Grace APNP [address] [place] [id number] PCP - General NURSE PRACTITIONER 12/28/18 documented as of this encounter
[2025-06-21] MEDS: IPRATROPIUM 0.5 MG/ALBUTEROL SULFATE 2.5 MG AMPUL.NEB 3 ML INHALATION (15:17)
[2025-06-21 15:53] LABS: Hematocrit 37.6 % (37.0-47.0); Hemoglobin 12.9 g/dL (12.0-15.0); Immature Granulocyte Percent A 0.6 % (0-0.5); Lymphocytes Absolute Auto 0.84 K/mm3 (0.9-3.2); Mean Corpuscular HGB Conc 34.3 g/dl (32-36); Mean Corpuscular Hemoglobin 30.5 pg (26-34); Mean Corpuscular Volume 88.9 fl (80-100); Nucleated Red Blood Cells Absolute Auto 0.000 K/mm3 (0.0-0.012); Nucleated Red Blood Cells Perc 0.0 % (0.0-0.2); Platelet Count Result 212 k/mm3 (150-375); Red Blood Count 4.23 M/mm3 (4.2-5.4); White Blood Count 10.2 K/mm3 (4.5-10.0)
[2025-06-21 16:02] LABS: INR 1.2; Prothrombin Time 15.0 Seconds (11.1-14.7)
[2025-06-21 16:03] LABS: Partial Thromboplastin Time 20.9 Seconds (22.3-36.8)
[2025-06-21 16:11] LABS: Alanine Aminotransferase 16 U/L (6-35); Albumin Level 4.2 g/dL (3.5-5.1); Alkaline Phosphatase 80 U/L (38-126); Anion Gap 7 mmol/L (4-12); Aspartate Amino Transferase 22 U/L (14-36); Bilirubin,Total 0.5 mg/dL (0.2-1.3); Blood Urea Nitrogen 16 mg/dL (7-17); Calcium 9.4 mg/dL (8.4-10.2); Carbon Dioxide 25 mmol/L (22-30); Chloride 105 mmol/L (98-107); Estimated CRCL calculation 77 ml/min; Estimated Glomerular Filt Rate > 60; Glucose 134 mg/dL (65-110); Potassium 3.7 mmol/L (3.4-5.0); Sodium 137 mmol/L (137-145); Total Protein 8.0 g/dL (6.3-8.2)
--- OUTSIDE RECORDS SUMMARY | 2025-06-21 16:14 | XMS_ITS | Clinical Summary ---
Author Organization [facility] Address [address] [place] [address] Care Team Providers Care Program Administrator Name Role Phone Unavailable Primary Care Provider Unavailabl e Source Comments [facility],non-owned Affiliates and Associated Physician Practices is amultiple site organization consisting of ambulatory clinics and hospital sitesin [place], [place], [place] and [place]. This disclosure is being madepursuant to the Care Everywhere program and may not contain all information available regarding this patient. Last updated 18.[facility] Allergies No known active allergies Medications * [...] on file Legal Sex Female 9:39 AM SMALL PRODUCTS I ASSEMBLER Gender Identity Not on file Sexual Orientation Not on file Last Filed Vital Signs Vital Sign Reading Time Taken Comments Blood Pressure 118/74 12/04/2019 10:59 AM SMALL PRODUCTS I ASSEMBLER Pulse 93 12/04/2019 10:59 AM SMALL PRODUCTS I ASSEMBLER Temperature 36.9 C (98.5 F) 12/04/2019 10:59 AM SMALL PRODUCTS I ASSEMBLER Respiratory Rate 16 12/04/2019 10:59 AM SMALL PRODUCTS I ASSEMBLER Oxygen Saturation 98% 12/04/2019 10:59 AM SMALL PRODUCTS I ASSEMBLER Inhaled Oxygen Concentration - - Weight 80.3 kg (177 lb) 12/04/2019 10:59 AM SMALL PRODUCTS I ASSEMBLER Height 165.1 cm (5' 5) 12/04/2019 10:59 AM SMALL PRODUCTS I ASSEMBLER Body Mass Index 29.45 12/04/2019 10:59 AM SMALL PRODUCTS I ASSEMBLER Plan of Treatment Health Maintenance Due Date [...]
--- OUTSIDE RECORDS SUMMARY | 2025-06-21 16:14 | XMS_ITS | Encounter Summary ---
Author Organization [facility] Address [facility] [place] [address] Care Team Providers Care Grey Roll Worker Name Role Phone Monica Grace Primary Care Provider [phone] Reason for Visit * Reason Comments Cough Dry cough, pain unde r right breast 06/18 went to [facility] and was diagnosed with pnuemonia. Was given prednisone and levoflaxin. Sx started on Wednesday06/16/25 with leg pains, went to [place] ED and a xray of her ankles was done and told to see podiatry. Encounter Details Date Type Department Care Team (Late st Contact Info) Description 06/21/2025 1:40 PM CDT Office Visit [facility] Medical Group Family & Internal Medicine [address] [phone] Eugenia Ferrer, DO [address] [address] Cough (Dry cough, pain under right breast 06/18 went to [facility] and was diagnosed with pnuemonia. Was given prednisone and levoflaxin. Sx started on Wednesday06/16/25 with leg pains, went to [place] ED and a xray of her ankles [...] pain under right breast 06/18 went to [facility] and was diagnosed with pnuemonia. Was given prednisone and levoflaxin. Sx started on Wednesday06/16/25 with leg pains, went to [place] ED and a xray of her ankles [...] and provided signout to ER attending at [facility]. Eugenia Ferrer DO 06/21/2025 [1] Outpatient Medications [...] Depression Total Score: 14 023 9:03 AM FAIRING MAN documented as of this encounter Care Teams Grey Roll Worker Relationship Specialty Start Date End Date Monica Grace APNP [address] [place] [address] PCP - General NURSE PRACTITIONER 12/28/18 documented as of this encounter
--- OUTSIDE RECORDS SUMMARY | 2025-06-21 16:14 | XMS_ITS | Encounter Summary ---
Author Organization [facility] Address [address] [place] [address] Care Team Providers Care Cloth Sander Name Role Phone Monica Grace Primary Care Provider [phone] Reason for Visit * Reason Onset Date Comments Appointment Request 06/20/2025 Encounter Details Date Type Department Care Team (Late st Contact Info) Description 06/20/2025 [place] Message Enc [facility] Medical Group Family & Internal Medicine [facility] [address] [place] [address] Monica Grace APNP [address] [place], [place] [phone] Pneumonia Social History Tobacco Use Types Packs/Day [...] Depression Total Score: 14 023 9:03 AM AUTO ELECTRICIAN documented as of this encounter Care Teams Cloth Sander Relationship Specialty Start Date End Date Monica Grace APNP [address] [place] [address] PCP - General NURSE PRACTITIONER 12/28/18 documented as of this encounter
--- OUTSIDE RECORDS SUMMARY | 2025-06-21 16:14 | XMS_ITS | Encounter Summary ---
Author Organization [facility] Address [address] [place] [address] Care Team Providers Care Freight Trucker Name Role Phone Monica Grace Primary Care Provider [phone] Encounter Details Date Type Department Care Team [...] Depression Total Score: 14 023 9:03 AM POLICY CANCELLATION CLERK documented as of this encounter Care Teams Freight Trucker Relationship Specialty Start Date End Date Monica Grace APNP [address] [place] [address] PCP - General NURSE PRACTITIONER 12/28/18 documented as of this encounter
--- OUTSIDE RECORDS SUMMARY | 2025-06-21 16:14 | XMS_ITS | Encounter Summary ---
Author Organization [facility] Address [facility] [place] [address] Care Team Providers Care Government Operations Consultant Name Role Phone Monica Grace Primary Care Provider Encounter Details Date Type Department Care Team (Late st Contact Info) Description 10/29/2022 [place] Message Enc [facility] Medical Group Family & Internal Medicine [facility] [address] [place] [address] Monica Grace APNP [address] [place], [place] [phone] Bad cough Social History Tobacco Use Types [...] Total Score: 6 12/19/19 22 9:29 AM SKILLED TRADES TEACHER documented as of this encounter Care Teams Government Operations Consultant Relationship Specialty Start Date End Date Monica Grace APNP [address] [place] [address] PCP - General NURSE PRACTITIONER 12/28/18 documented as of this encounter
--- OUTSIDE RECORDS SUMMARY | 2025-06-21 16:14 | XMS_ITS | Clinical Summary ---
Author Organization [facility] Address [address] [place] [address] Care Team Providers Care Commercial Construction Project Manager Name Role Phone Monica Grace Primary Care [...] on file Legal Sex Female 8:15 PM INTERIOR BLOCK WIRER Gender Identity Not on file Sexual Orientation Not on file Obstetrics History Last Filed Vital Signs Vital Sign Reading Time Taken Comments Blood Pressure 126/56 11/29/2024 8:30 AM INTERIOR BLOCK WIRER Pulse 79 11/29/2024 8:30 AM INTERIOR BLOCK WIRER Temperature 37.2 C (99 F) 11/29/2024 8:30 AM INTERIOR BLOCK WIRER Respiratory Rate 16 11/29/2024 8:30 AM INTERIOR BLOCK WIRER Oxygen Saturation 100% 11/29/2024 8:30 AM INTERIOR BLOCK WIRER Inhaled Oxygen Concentration - - Weight 93.4 kg (205 lb 14.6 oz) 025 11:00 AM INTERIOR BLOCK WIRER Height 165.1 cm (5' 5) 12/06/2024 11:0 0 AM INTERIOR BLOCK WIRER Body Mass Index 34.27 12/06/2024 11:00 AM INTERIOR BLOCK WIRER Plan of Treatment Health Maintenance Due Date [...] patient's age to complete this topic Insurance [facility] HMO MAIL HANDLERS Advance Directives For more information, please contact: [phone] * Full Code (Latest Code Status on File) Date Activated Date Inactivated Comments 11/28/2024 3:12 PM 11/29/2024 3:21 PM Care Teams Commercial Construction Project Manager Relationship Specialty Start Date End Date Monica Grace PA [address] [place] [address] PCP - General Nurse Practitioner 10/10/24
--- OUTSIDE RECORDS SUMMARY | 2025-06-21 16:14 | XMS_ITS | Encounter Summary ---
Author Organization [facility] Address [facility] [place] [address] Care Team Providers Care Veneer Lathe Operator Name Role Phone Monica Grace Primary Care Provider Encounter Details Date Type Department Care Team (Late st Contact Info) Description 04/06/2022 MyChart Message Enc [facility] Medical Group Family & Internal Medicine [facility] [address] [place] [address] Monica Grace APNP [address] [place], [place] [phone] FMLA Social History Tobacco Use Types Packs/Day [...] Total Score: 6 12/19/19 22 9:29 AM REGASIFICATION PLANT OPERATOR documented as of this encounter Care Teams Veneer Lathe Operator Relationship Specialty Start Date End Date Monica Grace APNP [address] [place] [address] PCP - General NURSE PRACTITIONER 12/28/18 documented as of this encounter
--- OUTSIDE RECORDS SUMMARY | 2025-06-21 16:14 | XMS_ITS | Encounter Summary ---
Author Organization [facility] Address [facility] [place] [address] Care Team Providers Care Nuclear Cardiology Technologist Name Role Phone Monica Grace Primary Care Provider [phone] Encounter Details Date Type Department Care Team (Late st Contact Info) Description 03/19/2022 MyChart Message Enc [facility] Medical Group Family & Internal Medicine [facility] [address] [place] [address] Monica Grace APNP [address] [place], [place] [phone] Fax Number Social History Tobacco Use Types [...] Total Score: 6 12/19/19 22 9:29 AM DIRECTOR LABOR STANDARDS documented as of this encounter Care Teams Nuclear Cardiology Technologist Relationship Specialty Start Date End Date Monica Grace APNP [address] [place] [address] PCP - General NURSE PRACTITIONER 12/28/18 documented as of this encounter
--- OUTSIDE RECORDS SUMMARY | 2025-06-21 16:14 | XMS_ITS | Referral Summary ---
Author Organization [facility] Address [address] [place] [place] [address] Care Team Providers Care Boat Canvas Maker And Installer Name Role Phone Monica Grace Primary [...] on file Legal Sex Female 8:15 PM WEIGHT REDUCTION SPECIALIST Gender Identity Not on file Sexual Orientation Not on file Last Filed Vital Signs Vital Sign Reading Time Taken Comments Blood Pressure 126/56 11/29/2024 8:30 AM WEIGHT REDUCTION SPECIALIST Pulse 79 11/29/2024 8:30 AM WEIGHT REDUCTION SPECIALIST Temperature 37.2 C (99 F) 11/29/2024 8:30 AM WEIGHT REDUCTION SPECIALIST Respiratory Rate 16 11/29/2024 8:30 AM WEIGHT REDUCTION SPECIALIST Oxygen Saturation 100% 11/29/2024 8:30 AM WEIGHT REDUCTION SPECIALIST Inhaled Oxygen Concentration - - Weight 93.4 kg (205 lb 14.6 oz) 025 11:00 AM WEIGHT REDUCTION SPECIALIST Height 165.1 cm (5' 5) 12/06/2024 11:0 0 AM WEIGHT REDUCTION SPECIALIST Body Mass Index 34.27 12/06/2024 11:00 AM WEIGHT REDUCTION SPECIALIST Plan of Treatment Not on file Insurance AETNA [facility] HMO MAIL HANDLERS Advance Directives For more information, please contact: [phone] * Full Code (Latest Code Status on File) Date Activated Date Inactivated Comments 11/28/2024 3:12 PM 11/29/2024 3:21 PM Care Teams Boat Canvas Maker And Installer Relationship Specialty Start Date End Date Monica Grace PA [address] [place] [address] PCP - General Nurse Practitioner 10/10/24
--- OUTSIDE RECORDS SUMMARY | 2025-06-21 16:14 | XMS_ITS | Clinical Summary ---
Author Organization [facility] Address [address] [place] [address] Care Team Providers Care Temple Meat Cutter Name Role Phone Easton Grace Primary Care Provider [phone] Medications ibuprofen (MOTRIN) 200 MG tablet Take [...] Description 06/21/2025 1:40 PM CDT Office Visit [facility] Medical [facility] Family & Internal Medicine [address] [address] Eugenia Ferrer, DO Cough (Dry cough, pain under right breast 06/18 went to [facility] and was diagnosed with pnuemonia. Was given prednisone and levoflaxin. Sx started on Wednesday06/16/25 with leg pains, went to [place] ED and a xray of her ankles was done and told to see podiatry. ) 06/21/2025 Travel 06/20/[address] [facility] Family & Internal Medicine [address] [address] Easton Grace, KENDY Pneumonia from Last 3 [...] 12/19/2021 Hepatitis C Completed 01/07/2024 PHQ-2 (Physician [place]) Completed 12/14/2024 Meningococcal B Vaccine Aged Out [...] TO HCV RNA Routine 01/07/2024 10:33 AM POWDER OPERATOR Need for hepatitis C screening test from [...] 2:29 PM Narrative 02/21/2025 2:30 PM CDT [address] [address] Examination: Screening bilateral mammogram Exam Date/Time: 02/21/2025 [...] HCV RNA ([facility] ONLY) (01/07/2024 10:33 AM POWDER OPERATOR) HEPATITIS C AB Non Reactive Non Reacti [facility] 1 INTERPRETATION Comment [facility] 1 Comment: Not infected with HCV unless early or acute infection is suspected (which may be delayed in an immunocompromised individual), or other evidence exists to indicate HCV infection. 01/07/2024 10:3 3 AM POWDER OPERATOR 01/07/2024 Narrative [facility] - 01/08/2024 12:09 PM POWDER OPERATOR Performed at: 01 - [facility] [address] Employment Clerk: Shashank Moreno PhD, Phone: [phone] [facility] Final Resul t [facility] [address] [place] [address] [id number] [facility] 1 from Last 3 Months or Most Recently Relevant to Health Maintenance Insurance AETNA [facility] Care Teams Temple Meat Cutter Relationship Specialty Start Date End Date Easton Grace APNP [address] [place] [address] PCP - General NURSE PRACTITIONER 12/28/18
--- OUTSIDE RECORDS SUMMARY | 2025-06-21 16:14 | XMS_ITS | Encounter Summary ---
Author Organization [facility] Address [facility] [place] [address] Care Team Providers Care Milk Route Supervisor Name Role Phone Monica Grace Primary Care Provider Encounter Details Date Type Department Care Team (Late st Contact Info) Description 03/05/2022 MyChart Message Enc [facility] Medical Group Family & Internal Medicine [facility] [address] [place] [address] Monica Grace APNP [address] [place], [place] [phone] FMLA Social History Tobacco Use Types Packs/Day [...] Total Score: 6 12/19/19 22 9:29 AM DRY BOX OPERATOR documented as of this encounter Care Teams Milk Route Supervisor Relationship Specialty Start Date End Date Monica Grace APNP [address] [place] [address] PCP - General NURSE PRACTITIONER 12/28/18 documented as of this encounter
[2025-06-21 16:21] LABS: NT Pro B Type Natriuretic Pept 111 pg/mL (19.9-100); Troponin I < 0.012 ng/mL (0.000-0.034)
--- NOTE | 2025-06-21 16:54 | ED.SOB ---
HPI - SOB/Dyspnea General Chief Complaint: Shortness of Breath/Dyspnea Stated Complaint: R/O PE Time Seen by Provider: 06/21/25 14:55 History of Present Illness HPI Narrative: Patient is a 39-year-old female who presents ER with shortness of breath and pain to her chest wall. She was recently diagnosed with pneumonia. Follow-up with her PCP who would like her evaluated for pulmonary embolism. Patient was started on estrogen control pills couple weeks ago. She has been cramping in her left lower extremity. No hemoptysis. Frequent coughing with pain with deep breath. No fevers or chills. No history of DVT previously. Related Data Home Medications ?Medication ?Instructions ?Recorded ?Confirmed ?Last Taken ?Type amitriptyline 25 mg tablet 25 mg PO QHS 02/17/22 06/06/25 Unknown History Allergies Allergy/AdvReac Type Severity Reaction Status Date / Time No Known Allergies Allergy Mild Verified 06/16/25 12:12 Review of Systems Review of Systems: All systems reviewed & are unremarkable except as noted in HPI and below Constitutional: Constitutional: Reports no additional constitutional complaints ENT: Reports system reviewed and no additional complaints, except as documented Cardiovascular: Cardiovascular: Reports no additional cardiovascular complaints Respiratory: Respiratory: Reports no additional respiratory complaints Gastrointestinal: Gastrointestinal: Reports no additional gastrointestinal complaints Musculoskeletal: Musculoskeletal: Reports no additional musculoskeletal complaints [facility] Past Medical History Medical History Screening mammogram, encounter for Migraines Vaginal discharge Encounter for screening examination for sexually transmitted disease Abnormal Pap smear of cervix 06/2009 Anxiety Family History Family History Other Diabetes mellitus aunt Grandparent Diabetes mellitus grandmother Social History Social History Smoking status: Never smoker Second hand tobacco smoke exposure: No Alcohol intake: never Substance use: never Substance use type: does not use Do You Feel Safe in your Home?: Yes Lack of Transportation: No Lack of Food: Never True Current Housing: I Have Housing Concerned About Future Housing: No Difficulty Paying Gas/Electric Bills: No Difficulty Paying for Meds: No Currently Unemployed: No Education: Trade/Vocational Certificate Difficulty w/ Childcare or Family Care: No Living arrangements: other Additional living arrangements comments: fiance Occupation/Education: occupation 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 HEAD: Normocephalic, atraumatic. ENT: Mucous membranes moist. NECK: Supple. CHEST: Clear to auscultation. No respiratory distress. Frequent coughing. HEART: Regular rate and rhythm. Normal peripheral pulses. ABDOMEN: Soft, nontender, nondistended. EXTREMITIES: Normal range of motion. No edema. SKIN: Warm, dry, no rash. NEURO: Alert and oriented x3. PSYCH: Normal mood and affect. Course Course Emergency Course: Patient educated on diagnosis and treatment plan. Admit to hospitalist service. Heparin for treatment of clot burden. Vital Signs Vital signs: Vital Signs Temperature 98.2 F 06/21/25 14:55 Pulse Rate 103 H 06/21/25 14:55 Respiratory Rate 26 H 06/21/25 14:55 Blood Pressure 121/85 06/21/25 14:55 Pulse Oximetry 99 06/21/25 14:55 Temperature 98.2 F 06/21/25 14:55 Pulse Rate 96 06/21/25 15:23 Respiratory Rate 14 06/21/25 15:23 Blood Pressure 121/85 06/21/25 14:55 Pulse Oximetry 99 06/21/25 14:55 Oxygen Delivery Room Air 06/21/25 15:50 MDM - SOB/Dyspnea Lab Data 06/21/25 15:45 06/21/25 15:45 Labs: Lab Results 06/21/25 Range/Units 15:45 WBC 10.2 H (4.5-10.0) K/mm3 RBC 4.23 (4.2-5.4) M/mm3 Hgb 12.9 (12.0-15.0) g/dL Hct 37.6 (37.0-47.0) % MCV 88.9 (80-100) fl MCH 30.5 (26-34) pg MCHC 34.3 (32-36) g/dl RDW 11.9 (11.5-14.5) % Plt Count 212 (150-375) k/mm3 MPV 8.6 (7.4-10.4) fl Immature Gran % (Auto) 0.6 H (0-0.5) % Neut % (Auto) 88.3 H (45.5-73.1) % Lymph % (Auto) 8.3 L (18.3-44.2) % [place] % (Auto) 2.7 (2.6-8.5) % Eos % (Auto) 0.0 (0-4.4) % Baso % (Auto) 0.1 L (0.2-1.2) % Lymph # (Auto) 0.84 L (0.9-3.2) K/mm3 [place] # (Auto) 0.3 (0.1-0.6) K/mm3 Eos # (Auto) 0.0 (0-0.3) K/mm3 Baso # (Auto) 0.0 (0.0-0.1) K/mm3 Abs Immat Gran (auto) 0.06 H (0.00-0.031) K/mm3 Absolute Neuts (auto) 9.0 H (1.3-6.7) K/mm3 Absolute Nucleated RBC 0.000 (0.0-0.012) K/mm3 Nucleated RBC % 0.0 (0.0-0.2) % PT 15.0 H (11.1-14.7) Seconds INR 1.2 APTT 20.9 L (22.3-36.8) Seconds Sodium 137 (137-145) mmol/L Potassium 3.7 (3.4-5.0) mmol/L Chloride 105 (98-107) mmol/L Carbon Dioxide 25 (22-30) mmol/L Anion Gap 7 (4-12) mmol/L BUN 16 (7-17) mg/dL Creatinine 0.91 (0.7-1.0) mg/dL Estim Creat Clear Calc 77 ml/min Estimated GFR > 60 (59 - ) Glucose 134 H (65-110) mg/dL Calcium 9.4 (8.4-10.2) mg/dL Total Bilirubin 0.5 (0.2-1.3) mg/dL AST 22 (14-36) U/L ALT 16 (6-35) U/L Alkaline Phosphatase 80 (38-126) U/L Troponin I < 0.012 (0.000-0.034) ng/mL NT-Pro-B Natriuret Pep 111 H (19.9-100) pg/mL Total Protein 8.0 (6.3-8.2) g/dL Albumin 4.2 (3.5-5.1) g/dL Imaging Data Radiologist's impression: ITS Impressions Chest CTA 06/21/25 16:44 IMPRESSION: 1. Extensive pulmonary emboli which are findings lobe of both lungs including in the majority of the segmental pulmonary arteries. No evident associated right heart strain. 2. Which is a region of groundglass opacity with peripheral consolidation at the anterobasilar segment of the right lower lobe most consistent with pulmonary infarct. Dr. Spivey discussed this and presence of pulmonary emboli with Dr. West at 4:52 PM. Venous Doppler Study 06/21/25 17:23 IMPRESSION: 1. [id number] deep venous thrombosis at the left popliteal, gastrocnemius, peroneal vein and posterior tibial veins. 2. No deep venous thrombosis in the right lower limb. Discharge Plan Discharge Clinical Impression: Embolism, pulmonary with infarction Patient Disposition: Still a Patient Condition: Stable Patient Language: [place] Prescriptions: No Action amitriptyline 25 mg tablet 25 mg PO QHS drospirenone-ethinyl estradiol [DEMETRI (28)] 3-0.02 mg tablet 1 tablet PO DAILY Qty: 84 3RF Follow-up/Referrals: Lesly,SYEDA Anderson [Primary Care Provider] -
[2025-06-21] MEDS: HEPARIN SOD/D5W 100 UNITS/ML 25,000 UNITS/250 ML BAG 12 UNITS IV CONT (17:30)
--- OUTSIDE RECORDS SUMMARY | 2025-06-21 18:14 | XMS_ITS | Encounter Summary ---
Author Organization [facility] Address [facility] [place] [address] Care Team Providers Care Head Machine Feeder Name Role Phone Monica Grace Primary Care Provider Encounter Details Date Type Department Care Team (Late st Contact Info) Description 03/05/2022 MyChart Message Enc [facility] Medical Group Family & Internal Medicine [facility] [address] [place] [address] Monica Grace APNP [address] [place], [place] [phone] FMLA Social History Tobacco Use Types Packs/Day [...] Total Score: 6 12/19/19 22 9:29 AM RESOLUTION AGENT documented as of this encounter Care Teams Head Machine Feeder Relationship Specialty Start Date End Date Monica Grace APNP [address] [place] [address] PCP - General NURSE PRACTITIONER 12/28/18 documented as of this encounter
--- OUTSIDE RECORDS SUMMARY | 2025-06-21 18:14 | XMS_ITS | Clinical Summary ---
Author Organization [facility] Address [address] [place] [address] Care Team Providers Care Grocery Shopper Name Role Phone Unavailable Primary Care Provider Unavailabl e Source Comments [facility],non-owned Affiliates and Associated Physician Practices is amultiple site organization consisting of ambulatory clinics and hospital sitesin [place], [place], [place] and [place]. This disclosure is being madepursuant to the Care Everywhere program and may not contain all information available regarding this patient. Last updated 18.[facility] Allergies No known active allergies Medications * [...] on file Legal Sex Female 9:39 AM BLENDER MACHINE OPERATOR Gender Identity Not on file Sexual Orientation Not on file Last Filed Vital Signs Vital Sign Reading Time Taken Comments Blood Pressure 118/74 12/04/2019 10:59 AM BLENDER MACHINE OPERATOR Pulse 93 12/04/2019 10:59 AM BLENDER MACHINE OPERATOR Temperature 36.9 C (98.5 F) 12/04/2019 10:59 AM BLENDER MACHINE OPERATOR Respiratory Rate 16 12/04/2019 10:59 AM BLENDER MACHINE OPERATOR Oxygen Saturation 98% 12/04/2019 10:59 AM BLENDER MACHINE OPERATOR Inhaled Oxygen Concentration - - Weight 80.3 kg (177 lb) 12/04/2019 10:59 AM BLENDER MACHINE OPERATOR Height 165.1 cm (5' 5) 12/04/2019 10:59 AM BLENDER MACHINE OPERATOR Body Mass Index 29.45 12/04/2019 10:59 AM BLENDER MACHINE OPERATOR Plan of Treatment Health Maintenance Due Date [...]
--- OUTSIDE RECORDS SUMMARY | 2025-06-21 18:15 | XMS_ITS | Clinical Summary ---
Author Organization [facility] Address [address] [place] [address] Care Team Providers Care Disability Benefits Specialist Name Role Phone Easton Grace Primary Care [...] Description 06/21/2025 1:40 PM CDT Office Visit [facility] Medical [facility] Family & Internal Medicine [address] [address] Eugenia Ferrer, DO Cough (Dry cough, pain under right breast 06/18 went to [facility] and was diagnosed with pnuemonia. Was given prednisone and levoflaxin. Sx started on Wednesday06/16/25 with leg pains, went to [place] ED and a xray of her ankles was done and told to see podiatry. ) 06/21/2025 Travel 06/20/2025 MyChart Message Enc [facility] Family & Internal Medicine [address] [address] Easton Grace, KENDY Pneumonia from Last 3 [...] 12/19/2021 Hepatitis C Completed 01/07/2024 PHQ-2 (Physician [place]) Completed 12/14/2024 Meningococcal B Vaccine Aged Out [...] TO HCV RNA Routine 01/07/2024 10:33 AM SENIOR WIND TURBINE TECHNICIAN Need for hepatitis C screening test from [...] 2:29 PM Narrative 02/21/2025 2:30 PM CDT [address] [address] Examination: Screening bilateral mammogram Exam Date/Time: 02/21/2025 [...] HCV RNA ([facility] ONLY) (01/07/2024 10:33 AM SENIOR WIND TURBINE TECHNICIAN) HEPATITIS C AB Non Reactive Non Reacti [facility] 1 INTERPRETATION Comment [facility] 1 Comment: Not infected with HCV unless early or acute infection is suspected (which may be delayed in an immunocompromised individual), or other evidence exists to indicate HCV infection. 01/07/2024 10:3 3 AM SENIOR WIND TURBINE TECHNICIAN 01/07/2024 Narrative [facility] - 01/08/2024 12:09 PM SENIOR WIND TURBINE TECHNICIAN Performed at: 01 - [facility] [facility] [address] Outsole Cementer: Shashank Moreno PhD, Phone: [phone] [facility] Final Resul t [facility] [address] [place] [address] [id number] [facility] 1 from Last 3 Months or Most Recently Relevant to Health Maintenance Insurance AETNA [facility] Care Teams Disability Benefits Specialist Relationship Specialty Start Date End Date Easton Grace APNP [address] [place] [address] PCP - General NURSE PRACTITIONER 12/28/18
--- OUTSIDE RECORDS SUMMARY | 2025-06-21 18:15 | XMS_ITS | Encounter Summary ---
Author Organization [facility] Address [facility] [place] [address] Care Team Providers Care Senior Gamemaster Name Role Phone Monica Grace Primary Care Provider Encounter Details Date Type Department Care Team (Late st Contact Info) Description 03/19/2022 MyChart Message Enc [facility] Family & Internal Medicine [facility] [address] [place] [address] Monica Grace APNP [address] [place], [place] [phone] Fax Number Social History Tobacco Use Types [...] Total Score: 6 12/19/19 22 9:29 AM LODGE SALES ASSOCIATE documented as of this encounter Care Teams Senior Gamemaster Relationship Specialty Start Date End Date Monica Grace APNP [address] [place] [phone] PCP - General NURSE PRACTITIONER 12/28/18 documented as of this encounter
--- OUTSIDE RECORDS SUMMARY | 2025-06-21 18:16 | XMS_ITS | Encounter Summary ---
Author Organization [facility] Address [facility] [place] [address] Care Team Providers Care Plant Culture Manager Name Role Phone Monica Grace Primary Care Provider Encounter Details Date Type Department Care Team (Late st Contact Info) Description 04/06/2022 MyChart Message Enc [facility] Family & Internal Medicine [facility] [address] [place] [address] Monica Grace APNP [address] [place], [place] [phone] FMLA Social History Tobacco Use Types Packs/Day [...] Total Score: 6 12/19/19 22 9:29 AM CRAB STEAMER documented as of this encounter Care Teams Plant Culture Manager Relationship Specialty Start Date End Date Monica Grace APNP [address] [place] [phone] PCP - General NURSE PRACTITIONER 12/28/18 documented as of this encounter
--- OUTSIDE RECORDS SUMMARY | 2025-06-21 18:17 | XMS_ITS | Encounter Summary ---
Author Organization [facility] Address [address] [place] [id number] Care Team Providers Care Clinical Nutrition Manager Name Role Phone Monica Grace Primary Care Provider +1- [phone] Encounter Details Date Type Department Care Team [...] Depression Total Score: 14 023 9:03 AM CUSTOMER FIELD REPRESENTATIVE documented as of this encounter Care Teams Clinical Nutrition Manager Relationship Specialty Start Date End Date Monica Grace APNP [address] [place] [phone] PCP - General NURSE PRACTITIONER 12/28/18 documented as of this encounter
--- OUTSIDE RECORDS SUMMARY | 2025-06-21 18:17 | XMS_ITS | Referral Summary ---
Author Organization [facility] Address [address] [place] [address] Care Team Providers Care Senior Water/Wastewater Engineer Name Role Phone Monica Grace Primary Care [...] on file Legal Sex Female 8:15 PM LETTERER Gender Identity Not on file Sexual Orientation Not on file Last Filed Vital Signs Vital Sign Reading Time Taken Comments Blood Pressure 126/56 11/29/2024 8:30 AM LETTERER Pulse 79 11/29/2024 8:30 AM LETTERER Temperature 37.2 C (99 F) 11/29/2024 8:30 AM LETTERER Respiratory Rate 16 11/29/2024 8:30 AM LETTERER Oxygen Saturation 100% 11/29/2024 8:30 AM LETTERER Inhaled Oxygen Concentration - - Weight 93.4 kg (205 lb 14.6 oz) 025 11:00 AM LETTERER Height 165.1 cm (5' 5) 12/06/2024 11:0 0 AM LETTERER Body Mass Index 34.27 12/06/2024 11:00 AM LETTERER Plan of Treatment Not on file Insurance [employer] [facility] [employer] Advance Directives For more information, please contact: [phone] * Full Code (Latest Code Status on File) Date Activated Date Inactivated Comments 11/28/2024 3:12 PM 11/29/2024 3:21 PM Care Teams Senior Water/Wastewater Engineer Relationship Specialty Start Date End Date Monica Grace PA [address] [place] [id number] PCP - General Nurse Practitioner 10/10/24
--- OUTSIDE RECORDS SUMMARY | 2025-06-21 18:17 | XMS_ITS | Clinical Summary ---
Author Organization [facility] Address [address] [place] [address] Care Team Providers Care Structural Engineering Project Manager Name Role Phone Monica Grace [...] on file Legal Sex Female 8:15 PM FIELD SCOUT Gender Identity Not on file Sexual Orientation Not on file Obstetrics History Last Filed Vital Signs Vital Sign Reading Time Taken Comments Blood Pressure 126/56 11/29/2024 8:30 AM FIELD SCOUT Pulse 79 11/29/2024 8:30 AM FIELD SCOUT Temperature 37.2 C (99 F) 11/29/2024 8:30 AM FIELD SCOUT Respiratory Rate 16 11/29/2024 8:30 AM FIELD SCOUT Oxygen Saturation 100% 11/29/2024 8:30 AM FIELD SCOUT Inhaled Oxygen Concentration - - Weight 93.4 kg (205 lb 14.6 oz) 025 11:00 AM FIELD SCOUT Height 165.1 cm (5' 5) 12/06/2024 11:0 0 AM FIELD SCOUT Body Mass Index 34.27 12/06/2024 11:00 AM FIELD SCOUT Plan of Treatment Health Maintenance Due Date [...] patient's age to complete this topic Insurance [facility] H[employer] MAIL HANDLERS Advance Directives For more information, please contact: [phone] * Full Code (Latest Code Status on File) Date Activated Date Inactivated Comments 11/28/2024 3:12 PM 11/29/2024 3:21 PM Care Teams Structural Engineering Project Manager Relationship Specialty Start Date End Date Monica Grace PA [address] [place] [id number] PCP - General Nurse Practitioner 10/10/24
--- OUTSIDE RECORDS SUMMARY | 2025-06-21 18:17 | XMS_ITS | Encounter Summary ---
Author Organization [facility] Address [facility] [place] [address] Care Team Providers Care Greeter Name Role Phone Monica Grace Primary Care Provider Encounter Details Date Type Department Care Team (Late st Contact Info) Description 10/29/[address] [facility] Family & Internal Medicine [facility] [address] [place] [address] Monica Grace APNP [address] [place], [place] [phone] Bad cough Social History Tobacco Use Types [...] Total Score: 6 12/19/19 22 9:29 AM STRAIGHT CUTTER documented as of this encounter Care Teams Greeter Relationship Specialty Start Date End Date Monica Grace APNP [address] [place] [phone] PCP - General NURSE PRACTITIONER 12/28/18 documented as of this encounter
--- OUTSIDE RECORDS SUMMARY | 2025-06-21 18:17 | XMS_ITS | Encounter Summary ---
Author Organization [facility] Address [address] [place] [address] Care Team Providers Care Legislative Analyst Name Role Phone Monica Grace Primary Care Provider +1- [phone] Reason for Visit * Reason Onset Date Comments Appointment Request 06/20/2025 Encounter Details Date Type Department Care Team (Late st Contact Info) Description 06/20/2025 Sundrop Mobilet Message Enc [facility] Medical [facility] Family & Internal Medicine [facility] [address] [place] [address] Monica Grace APNP [address] [place], [place] [phone] Pneumonia Social History Tobacco Use Types Packs/Day [...] Depression Total Score: 14 023 9:03 AM HEADING MATCHER AND ASSEMBLER documented as of this encounter Care Teams Legislative Analyst Relationship Specialty Start Date End Date Monica Grace APNP [address] [place] [phone] PCP - General NURSE PRACTITIONER 12/28/18 documented as of this encounter
--- OUTSIDE RECORDS SUMMARY | 2025-06-21 18:17 | XMS_ITS | Encounter Summary ---
Author Organization [facility] Address [facility] [place] [address] Care Team Providers Care Business Process Expert Name Role Phone Monica Grace Primary Care Provider +1- [phone] Reason for Visit * Reason Comments Cough Dry cough, pain unde r right breast 06/18 went to [facility] and was diagnosed with pnuemonia. Was given prednisone and levoflaxin. Sx started on Wednesday06/16/25 with leg pains, went to [place] [facility] and a xray of her ankles was done and told to see podiatry. Encounter Details Date Type Department Care Team (Late st Contact Info) Description 06/21/2025 1:40 PM CDT Office Visit [facility] Medical Group Family & Internal Medicine [address] [phone] Eugenia Ferrer, DO [address] [address] Cough (Dry cough, pain under right breast 06/18 went to [facility] and was diagnosed with pnuemonia. Was given prednisone and levoflaxin. Sx started on Wednesday06/16/25 with leg pains, went to [place] [facility] and a xray of her ankles [...] pain under right breast 06/18 went to [facility] and was diagnosed with pnuemonia. Was given prednisone and levoflaxin. Sx started on Wednesday06/16/25 with leg pains, went to [place] [facility] and a xray of her ankles [...] and provided signout to ER attending at [facility]. Eugenia Ferrer DO 06/21/2025 [1] Outpatient Medications [...] Depression Total Score: 14 023 9:03 AM LEVEE SUPERINTENDENT documented as of this encounter Care Teams Business Process Expert Relationship Specialty Start Date End Date Monica Grace APNP [address] [place] [phone] PCP - General NURSE PRACTITIONER 12/28/18 documented as of this encounter
--- NOTE | 2025-06-21 18:55 | ADMGEN ---
This patient, Radha Naidu, was admitted to IMU Room 209-01. Patient/family oriented to hospital policies and general routines including ID bracelet, bed and alarms, visiting hours, pain management, procedures, bathroom and other care routines, personal items, smoking policy, room service/diet, and visiting hours. Information on how to activate the Rapid Response Team has been discussed. Patient/Family are encouraged to report perceived risks to care and to ask questions if they do not understand what they are told or what they should do.
[2025-06-22] VITALS (18 sets, daily range): BP systolic 108–130; BP diastolic 53–73; PULSE 56–99; RESP 16–18; TEMP 36.6–36.9; O2SAT 97–100
--- NOTE | 2025-06-22 | ECHO_ITS ---
Patient Info Name: Radha Naidu Age: 39 years : 1985 Gender: Female Ht: 65 in Wt: 194 lbs BSA: 2.04 m2 HR: 73 bpm BP: 130 / 73 mmHg Heart Rhythm: Sinus Rhythm Technical Quality: Good Exam Date: 06/22/2025 9:29 AM Patient Status: O Admit Date: 06/21/2025 Exam Type: CA echo doppler color flow Complete two-dimensional, color flow and Doppler transthoracic echocardiogram is performed. Staff Referring Physician: Juan M West MD Cupola Operator: Danyelle Wooten Attending Provider: Cisco Muniz MD Summary 1. Complete two-dimensional, color flow and Doppler transthoracic echocardiogram is performed. 2. Left ventricular chamber dimension is normal. 3. Left ventricular systolic function is normal, estimated at 65-70. 4. Left ventricular septal wall motion is normal. 5. Right ventricular chamber dimension is normal. 6. Right ventricular systolic function is normal. 7. There is mild mitral valve regurgitation. 8. There is mild tricuspid valve regurgitation. Left Ventricle Left ventricular chamber dimension is normal. Left ventricular systolic function is normal, estimated at 65-70. There is no increased left ventricular wall thickness. Left ventricular septal wall motion is normal. The left ventricular diastolic function is normal. Right Ventricle Right ventricular chamber dimension is normal. Right ventricular systolic function is normal. Left Atria Left atrial chamber dimension is mildly enlarged. Right Atria Right atrial chamber dimension is normal. Aortic Valve The aortic valve is trileaflet. There is no aortic valve sclerosis. There is no aortic valve stenosis. There is no aortic valve regurgitation. Pulmonic Valve The pulmonic valve is not well visualized. There is no pulmonic valve stenosis. There is no pulmonic regurgitation. Mitral Valve There is no mitral valve stenosis. There is mild mitral valve regurgitation. Tricuspid Valve There is no significant tricuspid valve stenosis. There is mild tricuspid valve regurgitation. No pulmonary hypertension, estimated pulmonary arterial systolic pressure is 29 mmHg. Pericardium/Pleural The pericardium appears normal. There is no pericardial effusion. Inferior Vena Cava Normal inferior vena cava with >50% collapse upon inspiration consistent with normal right atrial pressure, 5 mmHg. Aorta The aortic root size at the sinus of Valsalva is normal. The prox ascending aorta size is normal. Left Ventricular Outflow Tract Name Value Normal LVOT 2D LVOT Diameter 1.9 cm LVOT Doppler LVOT Peak Velocity 144 cm/s LVOT Peak Gradient 8 mmHg LVOT Mean Gradient 3 mmHg LVOT VTI 27 cm LVOT VTI/AV VTI Ratio 0.9 LVOT Stroke Volume 75 ml LVOT CO 4.1 l/min LVOT CI 2.0 l/min/m2 Pulmonic Valve Name Value Normal RVOT Doppler RVOT Peak Velocity 74 cm/s RVOT Peak Gradient 2 mmHg PV Doppler PV Peak Velocity 101 cm/s PV Peak Gradient 4 mmHg Mitral Valve Name Value Normal MV Diastolic Function MV E Peak Velocity 109 cm/s MV A Peak Velocity 61 cm/s MV E/A 1.8 MV Decel Time (PW) 321 ms MV Annular TDI MV E/e' (Septal) 9.7 MV E/e' (Lateral) 8.6 MV E/e' (Average) 9.1 Tricuspid Valve Name Value Normal TV Regurgitation Doppler TR Peak Velocity 244 cm/s TR Peak Gradient 24 mmHg Estimated PAP/RSVP RA Pressure 5 mmHg <=5 PA Systolic Pressure 29 mmHg <36 RV Systolic Pressure 29 mmHg <36 TV Annular TDI TV Lateral Indu s' Velocity 12.3 cm/s >=9.5 Aorta Name Value Normal Ascending Aorta Ao Root Diameter (MM) 2.4 cm Ao Root Diam Index (MM) 1.2 cm/m2 Aortic Valve Name Value Normal AV Doppler AV Peak Velocity 154 cm/s AV Peak Gradient 9 mmHg AV Mean Gradient 5 mmHg AV VTI 30 cm AV Area (Cont Eq VTI) 2.5 cm2 >=3.0 AV Area (Cont Eq Gilbert) 2.6 cm2 AV DI (Gilbert) 0.94 AV Regurgitation 2D LVOT Area 2.8 cm2 Ventricles Name Value Normal LV Dimensions 2D/MM IVS Diastolic Thickness (2D) 0.8 cm 0.6-1.0 LVID Diastole (2D) 4.2 cm 3.8-5.2 LVIW Diastolic Thickness (2D) 0.7 cm 0.6-0.9 LVID Systole (2D) 2.2 cm 2.2-3.5 LVOT Diameter 1.9 cm LV Mass (2D Cubed) 87.33 g 67.00-162.00 LV Mass Index (2D Cubed) 43 g/m2 43-95 Relative Wall Thickness (2D) 0.32 <=0.42 LV Fractional Shortening/Ejection Fraction 2D/MM LV Fractional Shortening (2D) 48 % 27-45 LV EF (2D Teichholz) 79 % LV Diastolic Volume (4C MOD) 61 ml LV EF (4C MOD) 69 % LV Diastolic Volume (2C MOD) 58 ml LV EF (2C MOD) 63 % LV Diastolic Volume (BP MOD) 62 ml 46-106 LV Diastolic Volume Index (BP MOD) 30 ml/m2 29-61 LV Systolic Volume (BP MOD) 21 ml 14-42 LV Systolic Volume Index (BP MOD) 10 ml/m2 8-24 LV EF (BP MOD) 66 % 54-74 LV Diastolic Length (4C) 7.2 cm LV Systolic Length (4C) 5.7 cm LV Stroke Volume (4C MOD) 42 ml Atria Name Value Normal LA Dimensions LA Dimension (MM) 3.7 cm 2.7-3.8 LA Volume (4C A-L) 41 ml LA Volume (BP A-L) 47 ml RA Dimensions RA Area (4C) 15.3 cm2 <=18.0 Report Signatures
[2025-06-22 00:05] LABS: Partial Thromboplastin Time 56.2 Seconds (22.3-36.8)
--- NOTE | 2025-06-22 03:25 | P.HP_ITS ---
H&P: HPI History of Present Illness Date/Time: 06/22/25 03:25 Chief Complaint: Shortness of breath Narrative: This is a 39-year-old female presenting to [facility] ER on 06/21/2025 complaining of shortness of breath and left calf tightness. Her shortness of breath started about a week ago. She could not take deep breaths at all and had a dry cough. Shortly after she developed a left calf tightness/cramping. She presented to an urgent care a few days prior to admission and reports she had a chest x-ray and was told there was fluid at the bottom right side of her lung and was given antibiotic levofloxacin for pneumonia. Of note, a few weeks prior her associate director finance prescribed drospirenone ethinyl estradiol for control. On presentation she has mild sinus tachycardia, blood pressure 121/85, saturating 100% on room air. WBC 10.2, hemoglobin 12.9, INR 1.2, proBNP 111, troponin within normal limits. Bilateral venous Dopplers demonstrate below the knee DVT at the left popliteal gastrocnemius and peroneal vein and posterior tibial veins. CTA chest PE protocol demonstrates extensive pulmonary emboli in the majority of the segmental pulmonary arteries without associated right heart strain. There is a ground-glass opacity with peripheral consolidation at the anterior role basilar segment of the right lower lobe. She was started on a heparin GTT. Given DuoNeb x1. Review of Systems Review of Systems: All systems reviewed & are unremarkable except as noted in HPI and below (HPI/subjective) PMFSH Past Medical History Medical History Screening mammogram, encounter for Migraines Vaginal discharge Encounter for screening examination for sexually transmitted disease Abnormal Pap smear of cervix 06/2009 Anxiety Family History Family History Other Diabetes mellitus aunt Grandparent Diabetes mellitus grandmother Social History Social History Smoking status: Never smoker Second hand tobacco smoke exposure: No Alcohol intake: never Substance use: never Substance use type: does not use Do You Feel Safe in your Home?: Yes Lack of Transportation: No Lack of Food: Never True Current Housing: I Have Housing Concerned About Future Housing: No Difficulty Paying Gas/Electric Bills: No Difficulty Paying for Meds: No Currently Unemployed: No Education: High School Diploma/GED Difficulty w/ Childcare or Family Care: No Living arrangements: other Additional living arrangements comments: fiance Occupation/Education: occupation 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 Gender identity (if verbalized by the patient): Female Sexual Orientation (if Verbalized by the Patient): Straight or Heterosexual Spiritual care concerns: No Meds Home Medications and Allergies Home Medications ?Medication ?Instructions ?Recorded ?Confirmed ?Type drospirenone 3 mg-ethinyl 1 tablet PO DAILY #84 tabs 02/06/25 06/21/25 Rx estradiol 0.02 mg tablet (DEMETRI (28)) levofloxacin 750 mg tablet 750 mg PO Q24H pneuminia 06/21/25 06/21/25 History prednisone 20 mg tablet 20 mg PO Q12H pneumonia 06/21/25 06/21/25 History Allergies Allergy/AdvReac Type Severity Reaction Status Date / Time No Known Allergies Allergy Mild Verified 06/16/25 12:12 Vital Signs Vital Signs - 24 hr 06/21/25 14:52 06/21/25 14:53 06/21/25 14:55 Temperature 98.2 F Pulse Rate 98 88 103 H Respiratory Rate 25 H 22 H 26 H Blood Pressure 121/85 121/85 Pulse Oximetry 97 98 99 Oxygen Delivery 06/21/25 15:00 06/21/25 15:01 06/21/25 15:15 Temperature Pulse Rate 78 80 93 Respiratory Rate 20 25 H 18 Blood Pressure 127/76 Pulse Oximetry 98 98 99 Oxygen Delivery 06/21/25 15:17 06/21/25 15:23 06/21/25 15:30 Temperature Pulse Rate 79 96 101 H Respiratory Rate 14 14 31 H Blood Pressure Pulse Oximetry 99 Oxygen Delivery 06/21/25 15:45 06/21/25 15:50 06/21/25 16:00 Temperature Pulse Rate 84 75 Respiratory Rate 23 H 22 H Blood Pressure Pulse Oximetry 98 99 Oxygen Delivery Room Air 06/21/25 16:15 06/21/25 17:21 06/21/25 17:30 Temperature Pulse Rate 72 76 83 Respiratory Rate 20 17 21 H Blood Pressure Pulse Oximetry 99 100 100 Oxygen Delivery 06/21/25 17:31 06/21/25 18:20 06/21/25 18:30 Temperature Pulse Rate 87 94 75 Respiratory Rate 22 H 15 15 Blood Pressure 123/76 Pulse Oximetry 100 99 98 Oxygen Delivery 06/21/25 18:31 06/21/25 18:55 06/21/25 20:00 Temperature 98.2 F Pulse Rate 86 76 112 H Respiratory Rate 18 16 Blood Pressure 136/83 123/63 Pulse Oximetry 99 100 Oxygen Delivery 06/21/25 20:21 06/21/25 22:00 06/21/25 23:59 Temperature 98.9 F 98.1 F Pulse Rate 84 89 86 Respiratory Rate 16 15 Blood Pressure 145/86 H 124/57 L Pulse Oximetry 100 100 Oxygen Delivery 06/22/25 00:00 06/22/25 02:00 Temperature Pulse Rate 92 68 Respiratory Rate Blood Pressure Pulse Oximetry Oxygen Delivery Exam Const: General: comfortable and no acute distress HENMT: Mouth: Yes moist mucous membranes Eyes: Pupils: Equal, round and reactive pupils present Neck: Neck: supple Resp: Effort & Inspection: normal respiratory effort Auscultation: clear to auscultation bilaterally Cardio: Rate: regular rate Rhythm: regular rhythm GI: Inspection: non-distended GI Palp: Yes Soft to palpation Auscul tation: normal bowel sounds : General: Yes bladder normal to palpation Neuro: Motor exam (neuro): 5/5 motor strength present throughout Extrem: General: no edema H&P: Results Labs Labs: Short CBC 06/21/25 Range/Units 15:45 WBC 10.2 H (4.5-10.0) K/mm3 Hgb 12.9 (12.0-15.0) g/dL Hct 37.6 (37.0-47.0) % Plt Count 212 (150-375) k/mm3 [facility] 06/21/25 15:45 Sodium 137 Potassium 3.7 Chloride 105 Carbon Dioxide 25 BUN 16 Creatinine 0.91 Glucose 134 H Calcium 9.4 Cardiac Enzymes 06/21/25 Range/Units 15:45 Troponin I < 0.012 (0.000-0.034) ng/mL Liver Function 06/21/25 Range/Units 15:45 Total Bilirubin 0.5 (0.2-1.3) mg/dL AST 22 (14-36) U/L ALT 16 (6-35) U/L Alkaline Phosphatase 80 (38-126) U/L Albumin 4.2 (3.5-5.1) g/dL Assessment and Plan Assessment and plan (1) Embolism, pulmonary with infarction: Code(s): I26.99 - Other pulmonary embolism without acute cor pulmonale Status: Acute Plan This is a 39-year-old female presenting to [facility] ER on 06/21/2025 complaining of shortness of breath and left calf tightness. Her shortness of breath started about a week ago. She could not take deep breaths at all and had a dry cough, also associated with pleuritic right lower chest pain. Shortly after she developed a left calf tightness/cramping. She presented to an urgent care a few days prior to admission and reports she had a chest x-ray and was told there was fluid at the bottom right side of her lung and was given antibiotic levofloxacin for pneumonia. Of note, a few weeks prior her associate director finance prescribed drospirenone ethinyl estradiol for control. On presentation she has mild sinus tachycardia, blood pressure 121/85, saturating 100% on room air. WBC 10.2, hemoglobin 12.9, INR 1.2, proBNP 111, troponin with in normal limits. Bilateral venous Dopplers demonstrate below the knee DVT at the left popliteal gastrocnemius and peroneal vein and posterior tibial veins. CTA chest PE protocol demonstrates extensive pulmonary emboli in the majority of the segmental pulmonary arteries without associated right heart strain. There is a ground-glass opacity with peripheral consolidation at the anterior role basilar segment of the right lower lobe. She was started on a heparin GTT. Given DuoNeb x1. ----- The patient is hemodynamically stable and saturating well on room air. Continue heparin GTT. We have discussed the risks versus benefits of blood thinners. She has also been advised to avoid control until further evaluated with associate director finance and PCP in the future. She understands and agrees. Patient wishes to be full code. Saline lock IV. Regular diet. Hospitalist [facility] Advance Care Plan I have confirmed that the patient's Advanced Care Plan is present, code status is documented, or surrogate decision maker is listed in patient medical record.: Yes Medication Reconciliation I have utilized all available resources to obtain, update and review the patients current medications (includes all prescriptions, OTC, herbals, cannabis, and nutritional supplements).: Yes
[2025-06-22 06:16] LABS: Hematocrit 33.5 % (37.0-47.0); Hemoglobin 11.5 g/dL (12.0-15.0); Immature Granulocyte Percent A 0.9 % (0-0.5); Lymphocytes Absolute Auto 3.24 K/mm3 (0.9-3.2); Mean Corpuscular HGB Conc 34.3 g/dl (32-36); Mean Corpuscular Hemoglobin 30.3 pg (26-34); Mean Corpuscular Volume 88.2 fl (80-100); Nucleated Red Blood Cells Absolute Auto 0.000 K/mm3 (0.0-0.012); Nucleated Red Blood Cells Perc 0.0 % (0.0-0.2); Platelet Count Result 209 k/mm3 (150-375); Red Blood Count 3.80 M/mm3 (4.2-5.4); White Blood Count 12.2 K/mm3 (4.5-10.0)
[2025-06-22 06:40] LABS: Partial Thromboplastin Time 72.6 Seconds (22.3-36.8)
[2025-06-22] MEDS: HEPARIN SOD/D5W 100 UNITS/ML 25,000 UNITS/250 ML BAG 13 UNITS IV CONT (13:04)
[2025-06-22 13:41] LABS: Partial Thromboplastin Time 64.3 Seconds (22.3-36.8)
--- NOTE | 2025-06-22 15:37 | P.PNIM_ITS ---
Progress Note: A&P Assessment and Plan (1) Embolism, pulmonary with infarction: Code(s): I26.99 - Other pulmonary embolism without acute cor pulmonale Status: Acute Assessment and Plan: Patient presented with complaints of shortness of breath and left calf tightness. Patient was recently prescribed drospirenone ethinyl estradiol for control. On presentation she has mild sinus tachycardia, blood pressure 121/85, saturating 100% on room air. WBC 10.2, hemoglobin 12.9, INR 1.2, proBNP 111, troponin within normal limits. Bilateral venous Dopplers demonstrate below the knee DVT at the left popliteal gastrocnemius and peroneal vein and posterior tibial veins. CTA chest PE protocol demonstrates extensive pulmonary emboli in the majority of the segmental pulmonary arteries without associated right heart strain. There was a ground-glass opacity with peripheral consolidation at the anterior role basilar segment of the right lower lobe. Chart review shows a 8.4cm left thyroid nodule by US on June 2024. Do not find any mention of prior DVT. She has a personal hx and family hx of VTE so consider patient with underlying coagulopathy made more coagulopathic from estradiol. Also consider related to undiagnosed malignancy but felt less likely. Heparin drip started. DuoNeb x1 given. control stopped. Check Echo. Check coagulopathy workup. Change to Eliquis tonight. Add incentive spirometry and encouraged her to be out of bed. (2) Thyroid nodule: Code(s): E04.1 - Nontoxic single thyroid nodule Status: Acute Assessment and Plan: As above Plan Code status - full Subjective Date/time seen: 06/22/25 15:37 Interval history: 39yo (induced Ab) female with hx of DVT here for shortness of breath. She was recently changed from Depo-Provera to Le (ethinyl estradiol). SOB better today. Still having right sided pleuritic chest pain. Also with nonp roductive cough. She has a hx of DVT but details are limited - she believes she may have been on Coumadin. Also states that both her mother and sister have hx of VTE. Nonsmoker. Exam Narrative: AF 98.0 130/73 63 18 100% ra Gen - NARD Chest - right base inspiratory crackles, nml RR CV - RRR S1/S2. Telemetry showing normal sinus rhythm with PVCs. Abd - Soft, NT/ND, Positive BS Ext - No pedal edema Neuro - Alert and oriented. Nonfocal exam. Psych - Nml mood and affect Skin - Warm and dry Objective Data Vital Signs Vital Signs: Vital Signs - 24 hr 06/21/25 15:45 06/21/25 15:50 06/21/25 16:00 Temperature Pulse Rate 84 75 Respiratory Rate 23 H 22 H Blood Pressure Pulse Oximetry 98 99 Oxygen Delivery Room Air 06/21/25 16:15 06/21/25 17:21 06/21/25 17:30 Temperature Pulse Rate 72 76 83 Respiratory Rate 20 17 21 H Blood Pressure Pulse Oximetry 99 100 100 Oxygen Delivery 06/21/25 17:31 06/21/25 18:20 06/21/25 18:30 Temperature Pulse Rate 87 94 75 Respiratory Rate 22 H 15 15 Blood Pressure 123/76 Pulse Oximetry 100 99 98 Oxygen Delivery 06/21/25 18:31 06/21/25 18:55 06/21/25 20:00 Temperature 98.2 F Pulse Rate 86 76 112 H Respiratory Rate 18 16 Blood Pressure 136/83 123/63 Pulse Oximetry 99 100 Oxygen Delivery 06/21/25 20:21 06/21/25 22:00 06/21/25 23:59 Temperature 98.9 F 98.1 F Pulse Rate 84 89 86 Respiratory Rate 16 15 Blood Pressure 145/86 H 124/57 L Pulse Oximetry 100 100 Oxygen Delivery 06/22/25 00:00 06/22/25 02:00 06/22/25 04:00 Temperature Pulse Rate 92 68 65 Respiratory Rate Blood Pressure Pulse Oximetry Oxygen Delivery 06/22/25 05:55 06/22/25 06:00 06/22/25 08:00 Temperature 98.5 F 98.2 F Pulse Rate 76 84 67 Respiratory Rate 16 16 Blood Pressure 112/66 117/67 Pulse Oximetry 99 99 Oxygen Delivery 06/22/25 08:00 06/22/25 08:00 06/22/25 10:00 Temperature Pulse Rate 67 56 L 68 Respiratory Rate 16 Blood Pressure Pulse Oximetry 99 Oxygen Delivery Room Air 06/22/25 11:24 06/22/25 11:52 06/22/25 12:00 Temperature 98 F Pulse Rate 60 83 Respiratory Rate 18 Blood Pressure 130/73 Pulse Oximetry 100 Oxygen Delivery Room Air 06/22/25 14:00 Temperature Pulse Rate 63 Respiratory Rate Blood Pressure Pulse Oximetry Oxygen Delivery Intake/Output Intake/Output: Intake & Output 06/19/25 06/20/25 06/21/25 06/22/25 23:59 23:59 23:59 23:59 Intake Total 1036.5 Output Total 600 Balance 436.5 Meds/Results Medications: Active Medications Generic Name Dose Route Start Last Admin Trade Name Freq PRN Reason Stop Dose Admin Acetaminophen 650 mg 06/21/25 17:04 Acetaminophen 325 Mg Tablet PO Q4H PRN Mild Pain (1-3) or Fever Hydrocodone Bitart/Acetaminophen 1 tab 06/21/25 17:04 Hydrocodone/Acetaminophen (*Crx) 5-325 Mg Tablet PO Q4H PRN Pain Rated 4-6 Heparin Sodium (Porcine) 5,500 units 06/21/25 16:53 Heparin Sodium 5,000 Units/Ml Vial IV PUSH PRN PRN aPTT less than 55 seconds Heparin Sodium (Porcine) 2,500 units 06/21/25 16:53 06/22/25 14:30 Heparin Sodium 5,000 Units/Ml Vial IV PUSH 2,500 units PRN PRN Administration aPTT 55 - 70 seconds Heparin Sodium/Dextrose 25,000 units in 250 mls @ 14 mls/hr 06/21/25 16:55 06/22/25 14:31 Heparin Sodium/D5w 100 Units/Ml IV CONT 1,400 units/hr .[id number] DONNELL 14 mls/hr Titration Protocol 1,400 UNITS/HR Morphine Sulfate 4 mg 06/21/25 17:04 Morphine Sulfate (*Crx) 4 Mg/Ml Inj IV PUSH Q2H PRN Pain Rated 7-10 Ondansetron HCl 4 mg 06/21/25 17:04 Ondansetron Inj 4 Mg/2 Ml Vial IV PUSH Q4H PRN Nausea Perflutren Lipid Microsphere 0 ml 06/22/25 07:44 Perflutren Lipid Microspheres 1.5 Ml Vial Diluted To 10 Ml Total Volume IV PUSH 06/25/25 07:44 ONCE PRN adequate visualization Protocol Radiology Results: ITS Impressions Chest CTA 06/21/25 16:44 IMPRESSION: 1. Extensive pulmonary emboli which are findings lobe of both lungs including in the majority of the segmental pulmonary arteries. No evident associated right heart strain. 2. Which is a region of groundglass opacity with peripheral consolidation at the anterobasilar segment of the right lower lobe most consistent with pulmonary infarct. Dr. Spivey discussed this and presence of pulmonary emboli with Dr. West at 4:52 PM. Venous Doppler Study 06/21/25 17:23 IMPRESSION: 1. [id number] deep venous thrombosis at the left popliteal, gastrocnemius, peroneal vein and posterior tibial veins. 2. No deep venous thrombosis in the right lower limb. Labs Labs: Laboratory Results - last 24 hr 06/21/25 06/21/25 06/22/25 15:45 23:47 06:10 WBC 10.2 H 12.2 H RBC 4.23 3.80 L Hgb 12.9 11.5 L Hct 37.6 33.5 L MCV 88.9 88.2 MCH 30.5 30.3 MCHC 34.3 34.3 RDW 11.9 11.7 Plt Count 212 209 MPV 8.6 8.6 Immature Gran % (Auto) 0.6 H 0.9 H Neut % (Auto) 88.3 H 64.3 Lymph % (Auto) 8.3 L 26.6 [place] % (Auto) 2.7 7.5 Eos % (Auto) 0.0 0.4 Baso % (Auto) 0.1 L 0.3 Lymph # (Auto) 0.84 L 3.24 H [place] # (Auto) 0.3 0.9 H Eos # (Auto) 0.0 0.1 Baso # (Auto) 0.0 0.0 Abs Immat Gran (auto) 0.06 H 0.11 H Absolute Neuts (auto) 9.0 H 7.8 H Absolute Nucleated RBC 0.000 0.000 Nucleated RBC % 0.0 0.0 PT 15.0 H INR 1.2 APTT 20.9 L 56.2 H 72.6 H Sodium 137 Potassium 3.7 Chloride 105 Carbon Dioxide 25 Anion Gap 7 BUN 16 Creatinine 0.91 Estim Creat Clear Calc 77 Estimated GFR > 60 Glucose 134 H Calcium 9.4 Total Bilirubin 0.5 AST 22 ALT 16 Alkaline Phosphatase 80 Troponin I < 0.012 NT-Pro-B Natriuret Pep 111 H Total Protein 8.0 Albumin 4.2 06/22/25 13:00 WBC RBC Hgb Hct MCV MCH MCHC RDW Plt Count MPV Immature Gran % (Auto) Neut % (Auto) Lymph % (Auto) [place] % (Auto) Eos % (Auto) Baso % (Auto) Lymph # (Auto) [place] # (Auto) Eos # (Auto) Baso # (Auto) Abs Immat Gran (auto) Absolute Neuts (auto) Absolute Nucleated RBC Nucleated RBC % PT INR APTT 64.3 H Sodium Potassium Chloride Carbon Dioxide Anion Gap BUN Creatinine Estim Creat Clear Calc Estimated GFR Glucose Calcium Total Bilirubin AST ALT Alkaline Phosphatase Troponin I NT-Pro-B Natriuret Pep Total Protein Albumin
[2025-06-22] MEDS: HEPARIN SOD/D5W 100 UNITS/ML 25,000 UNITS/250 ML BAG 14 UNITS IV CONT (18:39)
[2025-06-22 19:57] LABS: SPREG INTERNAL CONTROL Positive; Serum Qual hCG Negative
[2025-06-22] MEDS: ACETAMINOPHEN 325 MG TABLET 650 MG PO (22:32)
[2025-06-22] MEDS: APIXABAN 5 MG TABLET 10 MG PO (22:44)
[2025-06-23] VITALS (12 sets, daily range): BP systolic 99–121; BP diastolic 60–65; PULSE 62–85; RESP 18–22; TEMP 36.6–36.8; O2SAT 96–100
[2025-06-23 04:17] LABS: Hematocrit 36.3 % (37.0-47.0); Hemoglobin 12.1 g/dL (12.0-15.0); Mean Corpuscular HGB Conc 33.3 g/dl (32-36); Mean Corpuscular Hemoglobin 29.4 pg (26-34); Mean Corpuscular Volume 88.3 fl (80-100); Platelet Count Result 215 k/mm3 (150-375); Red Blood Count 4.11 M/mm3 (4.2-5.4); White Blood Count 7.1 K/mm3 (4.5-10.0)
[2025-06-23 04:39] LABS: Hemoglobin A1C 4.6 % (<5.7)
[2025-06-23] MEDS: APIXABAN 5 MG TABLET 10 MG PO (09:09)
[2025-06-23] MEDS: HYDROcodone/acetaminophen (*CRX) 5-325 MG TABLET 1 TAB PO (09:10)
--- NOTE | 2025-06-23 12:14 | P.DS_ITS ---
DS: Admitting Diagnosis Discharge Date 06/23/25 Admitting Diagnosis Shortness of breath DS: Discharge Diagnosis Discharge Diagnosis (1) Embolism, pulmonary with infarction: Code(s): I26.99 - Other pulmonary embolism without acute cor pulmonale Status: Acute (2) DVT (deep venous thrombosis): Code(s): I82.409 - Acute embolism and thrombosis of unspecified deep veins of unspecified lower extremity Status: Acute DS: Summary Hospital Course Reason for hospitalization: 39yo (induced Ab) female with hx of DVT here for shortness of breath. She was recently changed from Depo-Provera to Demetri. Please see H&P for details. Hospital Course: Patient presented with complaints of shortness of breath and left calf tight ness. Patient was recently prescribed drospirenone ethinyl estradiol for control. On presentation she has mild sinus tachycardia, blood pressure 121/85, saturating 100% on room air. WBC 10.2, hemoglobin 12.9, INR 1.2, proBNP 111, troponin within normal limits. Serum test was negative. Bilateral venous Dopplers demonstrate below the knee DVT at the left popliteal gastrocnemius and peroneal vein and posterior tibial veins. CTA chest PE protocol demonstrates extensive pulmonary emboli in the majority of the segmental pulmonary arteries without associated right heart strain. There was a ground-glass opacity with peripheral consolidation at the anterobasilar segment of the right lower lobe. She has a personal hx of prior DVT but could not find this information in our charts. She had a benign left thyroid nodule (by biopsy) and ultimately underwent a partial left thyroidectomy. She also has a family hx of VTE so thrombophilic workup was started. She was started on Heparin drip. DuoNeb x1 given. control stopped. WBC up to 12K before normalizing. Non- fasting glucose was 134 but A1c 4.6%. Echo showing EF 65-70%, normal diastolic function, normal LV septal wall, normal RV size and function. Mild valve disease noted. She had clinical improvement. She was changed to Eliquis. Incentive spirometry added and encouraged her to be out of bed. Discharge instructions were discussed in detail with the patient. Long discussion regarding the risks and benefits of Eliquis. All questions were answered. She overall did well and was able to be discharged on 06/23/2025. Status at Discharge Cognitive/behavioral status at discharge: Stable Time Spent with Patient Time attestation: Total time spent providing and/or coordinating discharge services: 34 minutes Time spent: Greater than 30 minutes Exam Narrative: AF 98.0 108/62 77 18 99% ra Gen - NARD Chest -clear to auscultation bilaterally CV - RRR S1/S2. Telemetry showing normal sinus rhythm with occasional PVCs. Abd - Soft, NT/ND, Positive BS Ext - No pedal edema Neuro - Alert and oriented. Nonfocal exam. Psych - Nml mood and affect Skin - Warm and dry DS: Data Data Completed and Pending Labs on day of discharge: Labs from last 24 hours 06/23/25 06/23/25 06/22/25 03:57 03:56 20:49 WBC 7.1 RBC 4.11 L Hgb 12.1 Hct 36.3 L MCV 88.3 MCH 29.4 MCHC 33.3 RDW 11.8 Plt Count 215 MPV 8.4 APTT Lupus Anticoag aPTT Pending dRVV Screen Pending Lupus Anticoag Interp Pending Protein C Antigen Pending Protein C Activity Functional Protein C Pending Functional Protein S Pending Factor V Leiden Factor V Leiden Comment Hemoglobin A1c 4.6 Serum HCG, Qual Anti-Cardiolipin IgG Ab Anti-Cardiolipin IgM Ab Factor II DNA Analysis Factor II DNA Comment 06/22/25 06/22/25 06/22/25 20:48 20:47 20:36 WBC RBC Hgb Hct MCV MCH MCHC RDW Plt Count MPV APTT Lupus Anticoag aPTT dRVV Screen Lupus Anticoag Interp Protein C Antigen Protein C Activity Cancelled Functional Protein C Cancelled Functional Protein S Factor V Leiden Pending Factor V Leiden Comment Pending Hemoglobin A1c Serum HCG, Qual Anti-Cardiolipin IgG Ab Pending Anti-Cardiolipin IgM Ab Pending Factor II DNA Analysis Pending Factor II DNA Comment Pending 06/22/25 13:00 WBC RBC Hgb Hct MCV MCH MCHC RDW Plt Count MPV APTT 64.3 H Lupus Anticoag aPTT dRVV Screen Lupus Anticoag Interp Protein C Antigen Protein C Activity Functional Protein C Functional Protein S Factor V Leiden Factor V Leiden Comment Hemoglobin A1c Serum HCG, Qual Negative Anti-Cardiolipin IgG Ab Anti-Cardiolipin IgM Ab Factor II DNA Analysis Factor II DNA Comment Discharge Plan Discharge Attending physician on discharge: Cisco Muniz Discharging Clinician: Cisco Muniz Anticipated Discharge Date/Time: 06/23/25 12:25 Patient Disposition: Home Activity: as tolerated Diet: regular Discharge Instructions: Take precautions to avoid falls. Contact your doctor or call 911 and come to the Emergency Room if you have any type of trauma, lightheadedness with standing or other worrisome symptoms. Avoid NSAIDs (ibuprofen, naproxen, Aleve). Tylenol is safe to take. You are going home with Eliquis 5mg tablets: -- Take Eliquis 10mg (2 tablets) every 12 hours through the morning of June 29. -- Start Eliquis 5mg (1 tablet) every 12 hours starting in the evening of June 29. Follow-up with your primary care provider in 1-2 weeks. Please call for appointment. Thank you for using [facility] for your health care needs. Patient Instructions: Pulmonary Embolism (DC), Deep Vein Thrombosis (DC), Blood Thinners (GEN) Patient Language: Belarusian Stand Alone Forms: General Discharge Information, Work/School Release IP Follow-up/Referrals: Lesly,Monica, [employer] [Primary Care Provider] - Call for Appointment Discharge Medications: New hydrocodone-acetaminophen 5-325 mg Tablet 1 tablet PO Q4H PRN (Reason: pain, severe) Qty: 10 0RF Eliquis 5 mg Tablet 10 mg PO Q12HR Qty: 24 0RF Rx Instructions: Take Eliquis 10mg every 12 hours through the morning of June 29. Start Eliquis 5mg every 12 hours starting in the evening of June 29. Eliquis 5 mg Tablet 5 mg PO Q12HR Qty: 60 2RF Rx Instructions: Take Eliquis 10mg every 12 hours through the morning of June 29. Start E liquis 5mg every 12 hours starting in the evening of June 29. Discontinued drospirenone-ethinyl estradiol [DEMETRI (28)] 3-0.02 mg tablet 1 tablet PO DAILY Qty: 84 3RF Patient Comments: last dose sced for 06/22/2025 prednisone 20 mg tablet 20 mg PO Q12H Patient Comments: last dose is 06/22/2025 levofloxacin 750 mg tablet 750 mg PO Q24H Date of admission: 06/21/25 17:04 Primary Care Provider: LeslyMonica Admitting Provider: Cisco Muniz Attending physician on admission: Cisco Muniz Condition: Stable Hospitalist MIPS Heart Failure (Exclusion) Patient has history of Heart Transplant or Left Ventricular Assistive Device?: No IF YES, STOP HERE Heart Failure (Qualifier) Patient has current or prior documentation of LVEF less than or equal to 40%, or mod/servere depressed LVSF?: No IF NO, STOP HERE
[2025-06-25 11:08] LABS: Anticardiolipin Ab,IgG,Qn <9 GPL U/mL (0-14); Anticardiolipin Ab,IgM,Qn <9 MPL U/mL (0-12)
[2025-06-26 15:09] LABS: PTT-LA 26.7 sec (0.0-43.5)
--- NOTE | 2025-06-29 09:50 | PC.NURSE ---
Anticardolipin Ab- <9 Factor II and Factor V Leiden are not detected. Lupus Antocoag- 26.7. No lupus anticoag was detected. Prot C Ag- 81 Prot C+S functional which is low (63-140). Dr. Muniz aware of findings.
== END 2025-06-23 14:05 | disposition home or self-care (01) ==
LOC: ANHED 17:04 → ANHIMU 18:12
PROVIDERS: General Practice; Nurse Practitioner Gerontology; Admitting Provider Internal Medicine; Emergency Provider Emergency Medicine; PCP Registered Nurse; Visit Provider Internal Medicine
DX: I26.99 Other pulmonary embolism without acute cor pulmonale (principal); E04.1 Nontoxic single thyroid nodule; Z79.3 Long term (current) use of hormonal contraceptives; Z86.718 Personal history of other venous thrombosis and embolism
CPT/HCPCS: 36415; 71275; 80053; 81240; 81241; 83036; 83880; 84484; 84703; 85025; 85027; 85302; 85303; 85306; 85610; 85730; 85732; 86147; 93306; 93970; 94640; 99285; A9270; G0378; J1644; Q9967